=== PATIENT | female | born 1945 | race Caucasian/White ===

== ENCOUNTER 2016-03-18 08:29 | Outpatient (CLI) | payer MEDICARE, MEDICAID | END 2016-03-18 08:30 | disposition home or self-care (01) | DX: E11.22 Type 2 diabetes mellitus with diabetic chronic kidney disease (principal); N18.4 Chronic kidney disease, stage 4 (severe) ==

== ENCOUNTER 2017-03-04 11:40 | Outpatient (CLI) | payer MEDICARE, MEDICAID ==
--- NOTE | 2017-03-04 15:35 | XRAY Report ---
DATE OF SERVICE: 03/04/2017 TWO VIEW CHEST: 03/04/2017 CLINICAL INDICATION: Shortness of breath. COMPARISON: 10/06/2007. FINDINGS: Frontal and lateral views of the chest demonstrate a normal cardiac silhouette. Lungs are clear. No effusion or pneumothorax is present. IMPRESSION: NO EVIDENCE OF ACUTE CARDIOPULMONARY DISEASE. THE PREVIOUSLY NOTED INTERSTITIAL OPACITIES HAVE RESOLVED. TD: 03/04/2017 16:34
== END 2017-03-04 11:41 | disposition home or self-care (01) ==
LOC: DI 11:40
PROVIDERS: ATTEND Nurse Practitioner Gerontology
DX: R06.02 Shortness of breath (principal); I50.9 Heart failure, unspecified
CPT/HCPCS: 36415; 71046; 83880

== ENCOUNTER 2017-07-19 08:00 | Outpatient (CLI) | payer MEDICARE, MEDICAID ==
[2017-07-19 13:34] LABS: BASOPHILS # (AUTO) 0.1 10^3/uL (0.0-0.1); BASOPHILS % (AUTO) 1.4 %; EOSINOPHILS # (AUTO) 0.6 10^3/uL (0.0-0.7); EOSINOPHILS % (AUTO) 5.4 %; HGB - HEMOGLOBIN 13.9 g/dL (12.0-16.0); LYMPHOCYTES # (AUTO) 3.6 10^3/uL (1.5-3.5); LYMPHOCYTES % (AUTO) 33.6 %; MEAN CORPUSCULAR HGB CONC 33.3 g/dL (32.0-36.0); MEAN PLATELET VOLUME 8.5 fL (7.9-10.8); MONOCYTES # (AUTO) 1.1 10^3/uL (0.0-1.0); MONOCYTES % (AUTO) 10.1 %; NEUTROPHILS # (AUTO) 5.3 10^3/uL (1.5-6.6); NEUTROPHILS % (AUTO) 49.5 %; PLT - PLATELET COUNT 250 10^3/uL (130-450); WHITE BLOOD COUNT 10.6 x10^3/uL (4.8-10.8)
[2017-07-19 14:01] LABS: ALBUMIN 3.7 g/dL (3.2-5.5); ALBUMIN/GLOBULIN RATIO 0.9 (1.0-2.2); ALKALINE PHOSPHATASE 66 IU/L (42-121); ALT ALANINE AMINOTRANSFERASE 29 IU/L (10-60); AST ASPARTATE AMINOTRANSFERASE 26 IU/L (10-42); BILIRUBIN,TOTAL 0.7 mg/dL (0.2-1.0); BUN - BLOOD UREA NITROGEN 27 mg/dL (6-20); CALCIUM 9.5 mg/dL (8.5-10.3); CARBON DIOXIDE - CO2 29 mmol/L (21-32); CHLORIDE 103 mmol/L (101-111); CHOL/HDL RATIO 2.7 (<4.4); CHOLESTEROL 105 mg/dL; CREATININE 1.2 mg/dL (0.4-1.0); GFR - MDRD 44 (>89); GLUCOSE 93 mg/dL (70-100); HDL CHOLESTEROL 39 mg/dL; LDL CHOLESTEROL,CALCULATED 49 mg/dL; LDL/HDL RATIO 1.3 (<4.4); SODIUM 140 mmol/L (135-145); VLDL CHOLESTEROL 17 mg/dL
[2017-07-19 15:09] LABS: HB2 TOTAL 15.6 g/dL; HEMOGLOBIN A1C 1.33 g/dL
== END 2017-07-19 08:01 | disposition home or self-care (01) ==
LOC: LAB.N 08:00
PROVIDERS: ATTEND Nurse Practitioner Gerontology
DX: I13.0 Hypertensive heart and chronic kidney disease with heart failure and stage 1 through stage 4 chronic kidney disease, or unspecified chronic kidney disease (principal); I50.9 Heart failure, unspecified; E11.22 Type 2 diabetes mellitus with diabetic chronic kidney disease; N18.4 Chronic kidney disease, stage 4 (severe)
CPT/HCPCS: 36415; 80053; 80061; 83036; 83721; 85025

== ENCOUNTER 2017-12-07 08:47 | Outpatient (CLI) | payer MEDICARE, MEDICAID ==
[2017-12-07 13:47] LABS: HB2 TOTAL 14.6 g/dL; HEMOGLOBIN A1C 0.97 g/dL; HEMOGLOBIN A1C % 8.2 % (4.6-6.2)
[2017-12-07 15:13] LABS: ALBUMIN 3.5 g/dL (3.2-5.5); ALBUMIN/GLOBULIN RATIO 0.9 (1.0-2.2); ALKALINE PHOSPHATASE 78 IU/L (42-121); ALT ALANINE AMINOTRANSFERASE 27 IU/L (10-60); AST ASPARTATE AMINOTRANSFERASE 27 IU/L (10-42); BILIRUBIN,TOTAL 0.7 mg/dL (0.2-1.0); BUN - BLOOD UREA NITROGEN 25 mg/dL (6-20); CALCIUM 9.1 mg/dL (8.5-10.3); CARBON DIOXIDE - CO2 27 mmol/L (21-32); CHLORIDE 102 mmol/L (101-111); CHOL/HDL RATIO 2.9 (<4.4); CHOLESTEROL 112 mg/dL; CREATININE 1.3 mg/dL (0.4-1.0); GFR - MDRD 40 (>89); GLUCOSE 61 mg/dL (70-100); HDL CHOLESTEROL 38 mg/dL; LDL CHOLESTEROL,CALCULATED 56 mg/dL; LDL/HDL RATIO 1.5 (<4.4); SODIUM 137 mmol/L (135-145); TOTAL PROTEIN 7.4 g/dL (6.7-8.2); VLDL CHOLESTEROL 18 mg/dL
== END 2017-12-07 08:48 | disposition home or self-care (01) ==
LOC: LAB.N 08:47
PROVIDERS: ATTEND Nurse Practitioner
DX: E11.9 Type 2 diabetes mellitus without complications (principal)
CPT/HCPCS: 36415; 80053; 80061; 82043; 83036; 83721; 84443

== ENCOUNTER 2018-02-24 09:21 | Outpatient (CLI) | payer MEDICARE, MEDICAID | END 2018-02-24 23:59 | disposition home or self-care (01) | LOC: RT.N 09:21 | DX: Z53.9 Procedure and treatment not carried out, unspecified reason (principal) ==

== ENCOUNTER 2018-03-08 08:00 | Outpatient (CLI) | payer MEDICARE, MEDICAID ==
[2018-03-08 13:15] LABS: CREATININE 0.9 mg/dL (0.4-1.0)
[2018-03-08 13:31] LABS: CALCIUM 8.7 mg/dL (8.5-10.3)
[2018-03-08 13:33] LABS: HB2 TOTAL 15.6 g/dL; HEMOGLOBIN A1C 1.23 g/dL; HEMOGLOBIN A1C % 9.4 % (4.6-6.2)
== END 2018-03-08 23:59 | disposition home or self-care (01) ==
LOC: LAB.N 08:00
PROVIDERS: ATTEND Nurse Practitioner Gerontology
DX: I12.9 Hypertensive chronic kidney disease with stage 1 through stage 4 chronic kidney disease, or unspecified chronic kidney disease (principal); E11.9 Type 2 diabetes mellitus without complications
CPT/HCPCS: 36415; 80048; 83036

== ENCOUNTER 2018-05-05 08:00 | Outpatient (CLI) | payer MEDICARE, MEDICAID ==
[2018-05-05 13:29] LABS: BUN - BLOOD UREA NITROGEN 53 mg/dL (6-20); CHOLESTEROL 124 mg/dL; GFR - MDRD 24 (>89); HDL CHOLESTEROL 42 mg/dL; LDL CHOLESTEROL,CALCULATED 68 mg/dL; LDL/HDL RATIO 1.6 (<4.4); VLDL CHOLESTEROL 14 mg/dL
[2018-05-05 14:12] LABS: CALCIUM 9.4 mg/dL (8.5-10.3); CARBON DIOXIDE - CO2 23 mmol/L (21-32); CHLORIDE 106 mmol/L (101-111); SODIUM 141 mmol/L (135-145)
[2018-05-05 14:13] LABS: GLUCOSE 59 mg/dL (70-100)
== END 2018-05-05 23:59 | disposition home or self-care (01) ==
LOC: LAB.N 08:00
DX: E78.5 Hyperlipidemia, unspecified (principal); I25.10 Atherosclerotic heart disease of native coronary artery without angina pectoris
CPT/HCPCS: 36415; 80048; 80061; 83721; 85610

== ENCOUNTER 2018-05-08 07:28 | Outpatient (CLI) | payer MEDICARE, MEDICAID | END 2018-05-08 23:59 | LOC: LAB.N 07:28 | PROVIDERS: ATTEND Nurse Practitioner | DX: I25.10 Atherosclerotic heart disease of native coronary artery without angina pectoris (principal) | CPT/HCPCS: 85610 ==

== ENCOUNTER 2018-05-15 08:00 | Outpatient (CLI) | payer MEDICARE, MEDICAID ==
[2018-05-15 12:50] LABS: ALBUMIN 3.6 g/dL (3.2-5.5); BILIRUBIN,TOTAL 0.6 mg/dL (0.2-1.0); CALCIUM 9.1 mg/dL (8.5-10.3); CREATININE 1.3 mg/dL (0.4-1.0); TOTAL PROTEIN 7.3 g/dL (6.7-8.2)
== END 2018-05-15 23:59 | disposition home or self-care (01) ==
LOC: LAB.N 08:00
PROVIDERS: ATTEND Nurse Practitioner Gerontology
DX: R79.89 Other specified abnormal findings of blood chemistry (principal); I10 Essential (primary) hypertension; Z79.01 Long term (current) use of anticoagulants
CPT/HCPCS: 36415; 80053; 85610

== ENCOUNTER 2018-05-19 08:00 | Outpatient (CLI) | payer MEDICARE, MEDICAID | END 2018-05-19 23:59 | disposition home or self-care (01) | LOC: LAB.N 08:00 | PROVIDERS: ATTEND Nurse Practitioner | DX: I25.10 Atherosclerotic heart disease of native coronary artery without angina pectoris (principal) | CPT/HCPCS: 85610 ==

== ENCOUNTER 2018-05-22 08:00 | Outpatient (CLI) | payer MEDICARE, MEDICAID | END 2018-05-22 08:01 | disposition home or self-care (01) | LOC: LAB.N 08:00 | PROVIDERS: ATTEND Nurse Practitioner | DX: I25.10 Atherosclerotic heart disease of native coronary artery without angina pectoris (principal) | CPT/HCPCS: 85610 ==

== ENCOUNTER 2018-05-29 08:00 | Outpatient (CLI) | payer MEDICARE, MEDICAID | END 2018-05-29 23:59 | disposition home or self-care (01) | LOC: LAB.N 08:00 | PROVIDERS: ATTEND Nurse Practitioner Gerontology | DX: Z79.01 Long term (current) use of anticoagulants (principal) | CPT/HCPCS: 85610 ==

== ENCOUNTER 2018-05-30 08:22 | Inpatient (IN) | payer MEDICARE, MEDICAID ==
--- NOTE | 2018-05-30 08:46 | ED Physician Documentation ---
PD HPI DYSPNEA - Stated complaint Stated Complaint: SOA - Chief complaint Chief Complaint: Cardiac - History obtained from History obtained from: Patient - History of Present Illness Timing - onset: How many days ago (4-5 days of dyspnea and lightheadedness, with history of CAD and stents placed a month ago.) Timing - onset during: Light activity Timing - duration: Days Timing - details: Gradual onset, Still present, Waxing and waning (Worse with activity. She did not really have any unusual cough. She has a feeling of mild wheezing. She notes the dyspnea mostly with walking around her activity. She did have some leg edema a few days ago and that decreased with use of some Lasix for the past 2-3 days.) Inciting event(s): No: Out of meds, URI Improved by: Lasix, Rest Worsened by: Exertion Associated symptoms: Wheezing (mild), Bilateral edema (mild both legs, improved from few days ago after Lasix.). No: Fever, Cough Similar symptoms before: Has not had sx before Recently seen: Clinic (She was having dyspnea as her main presentation and found to have coronary disease without chest pain. She does have history of asthma so was confused with asthma for a while. She had a cardiology evaluation including heart cath which found multiple vessel occlusion stenoses. She had 2 stents placed in [facility] a month ago and had been doing well subsequently. She is scheduled for 1 or 2 more stents to be placed on the .) Review of Systems Constitutional: denies: Fever Nose: denies: Rhinorrhea / runny nose, Congestion Throat: denies: Sore throat Respiratory: reports: Dyspnea, Wheezing (mild intermittent, common). denies: Cough (mild chronic) GI: denies: Abdominal Pain, Nausea, Vomiting, Diarrhea Skin: denies: Rash, Lesions Musculoskeletal: reports: Extremity swelling Immunocompromised: denies: Immunocompromised PD PAST MEDICAL HISTORY - Past Medical History Cardiovascular: Coronary artery disease, Atrial fibrillation Respiratory: Asthma Neuro: None Endocrine/Autoimmune: None - Present Medications Home Medications: Ambulatory Orders Medication Instructions Recorded Confirmed Amiodarone [Pacerone] 200 mg PO DAILY 05/30/18 05/30/18 Amlodipine Besylate 1 tab PO DAILY 05/30/18 05/30/18 Aspirin 81 mg PO DAILY 05/30/18 05/30/18 Atorvastatin Calcium 40 mg PO DAILY 05/30/18 05/30/18 Clopidogrel [Plavix] 75 mg PO ONCE 05/30/18 05/30/18 Insulin Aspart [NovoLOG] 5 unit SUBQ TIDWM 05/30/18 05/30/18 Insulin Degludec [Tresiba] 60 unit SQ DAILY 05/30/18 05/30/18 Losartan [Cozaar] 50 mg PO DAILY 05/30/18 05/30/18 Meclizine [Antivert] 25 mg PO Q6H 05/30/18 05/30/18 Metoprolol Tartrate 50 mg PO DAILY 05/30/18 05/30/18 Warfarin [Coumadin] 2 mg PO 1400 05/30/18 05/30/18 - Allergies Allergies/Adverse Reactions: Allergies Allergy/AdvReac Type Severity Reaction Status Date / Time Penicillins Allergy Rash Verified 05/30/18 08:29 PD ED PE NORMAL - Vitals Vital signs reviewed: Yes - General General: Alert and oriented X 3, No acute distress, Well developed/nourished - HEENT HEENT: Moist mucous membranes, Pharynx benign - Neck Neck: Supple, no meningeal sign, No adenopathy - Cardiac Cardiac: RRR, No murmur - Respiratory Respiratory: No: Clear bilaterally (Mild bibasilar fine crackles. No notable wheezes.) - Abdomen Abdomen: Soft, Non tender - Derm Derm: Normal color, Warm and dry - Extremities Extremities: No tenderness to palpate, Normal ROM s pain, No calf tenderness / cord, Other (1+ edema both legs without redness nor calf tenderness. ) - Neuro Neuro: Alert and oriented X 3, No motor deficit, Normal speech Eye Opening: Spontaneous Motor: Obeys Commands Verbal: Oriented GCS Score: 15 Results - Vitals Vitals: Vital Signs - 24 hr 05/30/18 05/30/18 05/30/18 08:24 08:48 09:38 Temperature 35.7 C L Heart Rate 83 42 L 38 L Respiratory 12 14 Rate Blood Pressure 121/79 O2 Saturation 94 97 05/30/18 05/30/18 05/30/18 09:50 10:24 11:15 Temperature Heart Rate 41 L 42 L 42 L Respiratory 16 20 20 Rate Blood Pressure 117/63 108/54 L 111/53 L O2 Saturation 99 96 97 Oxygen O2 Source Nasal cannula - EKG (time done) 08:31 Rate: Rate (enter#) Rhythm: Sinus bradycardia [place]: Normal Intervals: Normal [place] QRS: Normal Ischemia: Normal ST segments. No: ST elevation c/w ischemia, ST depression - Labs Labs: Laboratory Tests 05/30/18 05/30/18 05/30/18 09:05 09:25 09:25 WBC 9.0 RBC 4.20 Hgb 12.4 Hct 37.6 MCV 89.4 MCH 29.5 MCHC 33.0 RDW 15.6 H Plt Count 109 L MPV 8.8 Neut # (Auto) 6.0 Lymph # (Auto) 1.6 [place] # (Auto) 0.9 Eos # (Auto) 0.4 Baso # (Auto) 0.1 Absolute Nucleated RBC 0.00 Nucleated RBC % 0.0 Manual Slide Review Indicated WBC Morphology NORMAL APPEARANCE Platelet Estimate DECREASED (<130,000) Platelet Morphology 1+ LARGE PLATELETS RBC Morph Micro Appear 1+ ANISOCYTOSIS PT INR Sodium 135 Potassium 4.4 Chloride 103 Carbon Dioxide 22 Anion Gap 10.0 BUN 39 H Creatinine 1.8 H Estimated GFR (MDRD) 28 L Glucose 146 H Calcium 8.5 Magnesium 2.2 Total Bilirubin 0.7 AST 122 H ALT 135 H Alkaline Phosphatase 78 Troponin I < 0.04 B-Natriuretic Peptide Total Protein 7.1 Albumin 3.4 Globulin 3.7 Albumin/Globulin Ratio 0.9 L Lipase 55 H 05/30/18 05/30/18 09:25 09:25 WBC RBC Hgb Hct MCV MCH MCHC RDW Plt Count MPV Neut # (Auto) Lymph # (Auto) [place] # (Auto) Eos # (Auto) Baso # (Auto) Absolute Nucleated RBC Nucleated RBC % Manual Slide Review WBC Morphology Platelet Estimate Platelet Morphology RBC Morph Micro Appear PT 15.3 H INR 1.4 H Sodium Potassium Chloride Carbon Dioxide Anion Gap BUN Creatinine Estimated GFR (MDRD) Glucose Calcium Magnesium Total Bilirubin AST ALT Alkaline Phosphatase Troponin I B-Natriuretic Peptide 565 H Total Protein Albumin Globulin Albumin/Globulin Ratio Lipase - Rads (name of study) chest xray Radiology: Prelim report reviewed (vascular prominence, basilar infiltrates, small effusions.), EMP read contemporaneously (c/w some degree of failure), See rad report PD MEDICAL DECISION MAKING - ED course Complexity details: reviewed results (Does have appearance of some congestive failure. It might be rate related and it does seem like she may been taking twice her beta-alex prescribed dose. I think she needs a little bit more diuresing. She had slight improvement with an albuterol inhaler. No signs of heart muscle injury.), considered differential (The patient is relatively bradycardic with a heart rate of 40. In discussion with her it sounds like she is taking metoprolol 50 mg twice a day. Dr. Farrar the cone trucker said her discharge instructions were 25 twice a day and our nursing notes a 50 mg once a day. She may have had too much beta-alex and is relatively bradycardic and that may be contributing to her congestive failure.), d/w patient, d/w family, d/w technical sales consultant (Talked with Dr. Farrar who is on-call for cardiology at [facility]. Given the patient is in a regular rhythm, he said we could decrease the amiodarone from 200-100 mg daily. He states her ejection fraction post stent previously was 70% and so does not feel that is likely heart failure related to the coronary disease. He would like the patient to be bradycardic with a target more 50-60. Give some diuretics over the next few days. He did not feel the patient needed transfer or change in the time schedule for her stent placement.) Departure - Departure Disposition: ED Place in Observation Clinical Impression: Bradycardia Dyspnea Qualifiers: Dyspnea type: dyspnea on exertion Qualified Code(s): R06.09 - Other forms of dyspnea Congestive heart failure Qualifiers: Heart failure type: unspecified Heart failure chronicity: acute Qualified Code(s): I50.9 - Heart failure, unspecified Asthma Qualifiers: Asthma severity: mild Asthma persistence: intermittent Asthma complication type: unspecified Qualified Code(s): J45.20 - Mild intermittent asthma, uncomplicated Discharge Date/Time: 05/30/18 12:48
[2018-05-30 09:26] LABS: BASOPHILS # (AUTO) 0.1 10^3/uL (0.0-0.1); BASOPHILS % (AUTO) 1.2 %; EOSINOPHILS # (AUTO) 0.4 10^3/uL (0.0-0.7); EOSINOPHILS % (AUTO) 4.1 %; HGB - HEMOGLOBIN 12.4 g/dL (12.0-16.0); LYMPHOCYTES # (AUTO) 1.6 10^3/uL (1.5-3.5); LYMPHOCYTES % (AUTO) 18.1 %; MEAN CORPUSCULAR HEMOGLOBIN 29.5 pg (27.0-31.0); MEAN CORPUSCULAR VOLUME 89.4 fL (81.0-99.0); MEAN PLATELET VOLUME 8.8 fL (7.9-10.8); MONOCYTES # (AUTO) 0.9 10^3/uL (0.0-1.0); MONOCYTES % (AUTO) 9.7 %; NEUTROPHILS % (AUTO) 66.9 %; PLT - PLATELET COUNT 109 10^3/uL (130-450); RED CELL DISTRIBUTION WIDTH 15.6 % (12.0-15.0)
[2018-05-30] MEDS ORDERED: ALBUTEROL NEB 2.5 MG/3 ML INH STA (09:28)
[2018-05-30 09:44] LABS: ALBUMIN 3.4 g/dL (3.2-5.5); ALBUMIN/GLOBULIN RATIO 0.9 (1.0-2.2); BILIRUBIN,TOTAL 0.7 mg/dL (0.2-1.0); CALCIUM 8.5 mg/dL (8.5-10.3); CREATININE 1.8 mg/dL (0.4-1.0); MAGNESIUM 2.2 mg/dL (1.7-2.8); TOTAL PROTEIN 7.1 g/dL (6.7-8.2)
--- NOTE | 2018-05-30 09:44 | XRAY Report ---
Reason: chest pain/SOA Procedure Date: 05/30/2018 Accession Number: [id number] / [id number] Procedure: XR - Chest 1 View X-Ray CPT Code: 30223 FULL RESULT: EXAM: CHEST RADIOGRAPHY EXAM DATE: 05/30/2018 09:33 AM. CLINICAL HISTORY: Chest pain/SOA. COMPARISON: CHEST AP (VG) 04/02/2018 10:23 AM. TECHNIQUE: 1 view. FINDINGS: Lungs/Pleura: Very mild increased vascular and interstitial prominence. New mild left basilar/retrocardiac atelectasis or infiltrate. Very mild left costophrenic angle blunting is without change could represent a very small effusion. No pneumothorax. Mediastinum: Stable cardiac enlargement. A line over the right upper abdomen and vertically projecting over the right aspect of the heart, tip near the cavoatrial junction region, presumably overlies the patient. Other: None. IMPRESSION: 1. New very mild left basilar atelectasis or infiltrate. 2. New very mild vascular and interstitial prominence. 3. Stable very small left pleural effusion versus pleural thickening. 4. Stable cardiac enlargement. RADIA
[2018-05-30 09:47] LABS: INR 1.4 (0.8-1.2); PT - PROTHROMBIN TIME 15.3 secs (9.9-12.6)
[2018-05-30 09:53] LABS: PLATELET MORPHOLOGY 1+ LARGE PLATELETS (NORMAL)
[2018-05-30 09:54] LABS: PLATELET ESTIMATE, MANUAL DECREASED (<130,000) (NORMAL); RBC MORPHOLOGY (MULTIPLE) 1+ ANISOCYTOSIS (NORMAL)
[2018-05-30] MEDS ORDERED: FUROSEMIDE 20 MG/2 ML VIAL IVP STA (10:02)
[2018-05-30] MEDS ORDERED: TEMAZEPAM 15 MG CAPSULE PO PRN (11:50)
[2018-05-30] MEDS ORDERED: PROCHLORPERAZINE 10 MG/2 ML VIAL IVP PRN (11:50)
[2018-05-30] MEDS ORDERED: ACETAMINOPHEN 325 MG TABLET PO PRN (11:50)
[2018-05-30] MEDS ORDERED: CLOPIDOGREL 75 MG TABLET PO SCH (12:00)
[2018-05-30] MEDS: MECLIZINE 12.5 MG TABLET PO SCH ×2 (13:41→17:20)
[2018-05-30] MEDS: WARFARIN 1 MG TABLET PO SCH (13:41)
[2018-05-30] MEDS: INSULIN ASPART 300 UNIT/3 ML PEN SUBQ SCH ×3 (13:43→20:51)
[2018-05-30] MEDS: FUROSEMIDE 40 MG/4 ML VIAL IVP SCH (17:20)
[2018-05-30] MEDS: SODIUM CHLORIDE FLUSH 0.9% 10 ML SYRINGE IVP SCH (17:20)
--- NOTE | 2018-05-30 17:36 | HISTORY & PHYSICAL EXAMINATION ---
Chief Complaint - Chief Complaint Chief Complaint: increased SOB, lightheadedness Chest Pain Admission HPI - Admitted From Admitted from: ED - History Obtained From Records Reviewed: RN notes reviewed, Old records reviewed History obtained from: Patient, Family Exam limitations: Language barrier, Other (continued shortness of breath, exacerbated by speaking) - History of Present Illness Severity at the worst: reports: Severe Context-Pain started w/: reports: Exertion, Inspiration, Position Timing: reports: Gradual onset, Constant Duration: reports: Days: (4-5 days) Improved with: reports: Rest, Oxygen, Other (diuretics) Worsened by: reports: Exertion, Movement Associated symptoms: reports: Shortness of air, Nausea, Feeling faint / dizzy, General Weakness HPI Comment/Other: Liudmila Gusman is an obese, Greek 72-year old woman with a past medical history of uncontrolled diabetes, non-ST elevated myocardial infarction, status post coronary stenting in March 2018, CKD stage 3, hypertension, atrial fibrillation with RVR on Warfarin, CAD, hyperlipidemia, intracranial vascular stenosis, vertigo, obesity, peripheral neuropathy, chronic dysuria, cataracts, seasonal allergies, and asthma. The patient presented to the ED via private car with complaints of a 4-5 day history of progressive shortness of breath, dizziness and increased peripheral swelling. She called her PCP on Tuesday (yesterday) who gave her a refill of the Meclizine for her complaints of dizziness. Upon my exam the patient admitted to a gradual onset of progressive shortness of breath that becomes worse with activity or lying flat in bed, increased leg edema, poor appetite, and ongoing dizziness. She denied acute chest pain, chest pressure, headaches, productive cough, fever, chills, recent illness, or a new rash. She also admitted to her breathing being much improved since wearing the oxygen that was placed in the ED. Physical exam revealed very diminished lung sounds with prominent expiratory wheezing, labored breathing with speaking, a distant S3 gallop, + murmur, increased abdominal edema, and increased peripheral edema. Labs showed anemia with an H/H of 12.4/37.6, platelets of 109, BUN of 39, creatinine of 1.8, GFR of 28, glucose of 146, AST 122, ALT 135, troponin of 0.04, lipase of 55, INR of 1.4, & BNP of 565. Vital signs showed a very low heart rate in the 40's, temp 35.7 C, RR 14, B/P 111/53, and O2 of 97% on 2L nasal cannula. Records indicate that the patient was discharged from [facility] on 04/06/2018 after undergoing a complex PCI with primary teaching assistant of an intra-aortic balloon pump. She was sub-therapeutic on her INR at the time of discharge with a value of 1.5 and her last INR completed by her PCP was also low at 1.3. Once arriving on the nursing floor, she is found to have very light blood sugars, so her home scheduled insulin are on hold. Since her platelet count is low, a Lovenox bridge may be contraindicated. She will be admitted to observation for aggressive diuresis, diabetes sugar control, symptom management of her dyspnea and dizziness, and to monitor effectiveness of resolution of apparent liver congestion caused by this acute CHF. PMH/PSH - Past Medical History Cardiovascular: positive: Congestive heart failure, Hypertension, Coronary artery disease, Atrial fibrillation, Murmur Respiratory: positive: Asthma Neuro: positive: Peripheral neuropathy Endocrine/Autoimmune: positive: Type 2 diabetes GI: positive: GERD : positive: Incontinence, Renal insuffiency, Nocturia, Frequency HEENT: positive: Chronic vision loss, Chronic sinusitis Psych: positive: Anxiety Musculoskeletal: positive: Osteoarthritis Derm: positive: None MRSA Hx?: No Other Past Medical History: vertigo - Past Surgical History Cardiovascular: positive: Cardiac catheterization, Angioplasty Social & Family Hx - Living Situation Living Arrangement: At home Living Situation: With family (Lives in [place], [place] with daughter, son in law and grandson) - Social History Does the pt smoke?: No Smoking Status: Never smoker Does the pt drink ETOH?: No Does the pt have substance abuse?: No - POLST Patient has POLST: No POLST Status: Full Code - Family History Family History: Mother: , CAD, Diabetes, Type 2, Hypertension, Father: Family History Comment/Other: Patient did not know her father and brothers/sister are estranged. Meds/Allgy - Home Medications Home Medications: Ambulatory Orders Medication Instructions Recorded Confirmed Amiodarone [Pacerone] 200 mg PO DAILY 05/30/18 Amlodipine Besylate 1 tab PO DAILY 05/30/18 Aspirin 81 mg PO DAILY 05/30/18 Atorvastatin Calcium 40 mg PO QPM 05/30/18 Benzonatate 200 mg PO TID PRN 05/30/18 Clopidogrel [Plavix] 75 mg PO DAILY 05/30/18 Fluticasone/Salmeterol [Advair 1 inh INH BID 05/30/18 100-50 Diskus] Insulin Aspart [NovoLOG] 16 unit SUBQ TIDWM 05/30/18 Insulin Degludec [Tresiba] 60 unit SQ DAILY 05/30/18 Losartan [Cozaar] 25 mg PO DAILY 05/30/18 Meclizine [Antivert] 25 mg PO BID PRN 05/30/18 Metoprolol Succinate [Toprol Xl] 25 mg PO BID 05/30/18 Nitroglycerin [Nitrostat] 0.4 mg SL Q5MIN PRN 05/30/18 Scopolamine [Transderm-Scop] 1 patch TOP Q72H 05/30/18 Warfarin [Coumadin] 1 - 4 mg PO DAILY 05/30/18 - Allergies Allergies/Adverse Reactions: Allergies Allergy/AdvReac Type Severity Reaction Status Date / Time lisinopril Allergy Respiratory Verified 05/30/18 18:23 Penicillins Allergy Rash Verified 05/30/18 08:29 pioglitazone [From Actos] Allergy Itching Verified 05/30/18 18:23 rosiglitazone [From Avandia] Allergy Edema Verified 05/30/18 18:22 Review of Systems - Constitutional Constitutional: reports: Fatigue, Weakness, Poor appetite - Eyes Eyes: reports: Vision loss - Ears, Nose & Throat Ears, Nose & Throat: reports: Hearing loss, Nasal congestion, Postnasal drainage - Cardiovascular Cariovascular: reports: Irregular heart rate, Edema, Lightheadedness, Orthopnea - Respiratory Respiratory: reports: Cough, Wheezing, Orthopnea, SOB at rest, SOB with exertion - Gastrointestinal Gastrointestinal: reports: Abdominal distention, Nausea, Reflux/heartburn - Genitourinary Genitourinary: reports: Dysuria, Frequency, Urgency, Incontinence, Nocturia - Musculoskeletal Musculoskeletal: reports: Limited range of motion, Muscle weakness - Integumentary Integumentary: reports: Dryness - Neurological Neurological: reports: General weakness, Memory problems, Pre-existing deficit - Psychiatric Psychiatric: reports: Anxiety - Hematologic/Lymphatic Hematologic/Lymphatic: reports: Anemia - All Other Systems All Other Systems: reports: Reviewed and negative Prior Level of Functionality: Lives with daughter, son in law and grand son. 4 steps to enter the home, 14 steps to the patient's bedroom, bathroom on the 2nd floor. At baseline the patient was ambulatory without the use of AD, recently was driving, and active in the community. No recent falls reported. Has had Home health services recommended for strength training and gait stability due to her ongoing vertigo, dizziness and recent NSTEMI. Exam - Vital Signs Reviewed Vital Signs: Yes Vital Signs: Vital Signs x48h Temp Pulse Pulse Resp BP BP Pulse Ox 05/30/18 16:20 37.2 C 47 L 24 133/51 H 95 05/30/18 13:05 37.0 C 45 L 17 127/47 L 05/30/18 11:15 42 L 20 111/53 L 97 05/30/18 10:24 42 L 20 108/54 L 96 05/30/18 09:50 41 L 16 117/63 99 05/30/18 09:38 38 L 14 - Physical Exam General Appearance: positive: Alert, Moderate distress Eyes Bilateral: positive: Normal inspection, PERRL ENT: positive: ENT inspection nml, Pharynx nml, Dry mucous membranes Neck: positive: Thyroid nml, No JVD, Stiff neck Respiratory: positive: Chest non-tender, Wheezes, Other (diminished) Cardiovascular: positive: No gallop, Bradycardia, Systolic murmur, Decreased pulse(s) Peripheral Pulses: positive: 1+ Abdomen: positive: Non-tender, Nml bowel sounds, Hepatomegaly, Other (rounded, obese, soft) Back: positive: Nml inspection Skin: positive: Color nml, No rash, Warm, Dry Extremities: positive: Non-tender, Full ROM, Pedal edema Neurologic/Psychiatric: positive: CN's nml (2-12), Motor nml, Weakness, Sensory loss, Depressed mood/affect Reflexes: Bicep (R): 2+, Bicep (L): 2+ Results - Lab Results Lab results reviewed: Yes Fish Bones: 05/30/18 09:05 05/30/18 09:25 Other Lab Results: Lab Results x24hrs 05/30/18 05/30/18 05/30/18 Range/Units 16:46 16:10 09:25 WBC (4.8-10.8) x10^3/uL RBC (4.20-5.40) 10^6/uL Hgb (12.0-16.0) g/dL Hct (37.0-47.0) % MCV (81.0-99.0) fL MCH (27.0-31.0) pg MCHC (32.0-36.0) g/dL RDW (12.0-15.0) % Plt Count (130-450) 10^3/uL MPV (7.9-10.8) fL Neut # (Auto) (1.5-6.6) 10^3/uL Lymph # (Auto) (1.5-3.5) 10^3/uL Harlan # (Auto) (0.0-1.0) 10^3/uL Eos # (Auto) (0.0-0.7) 10^3/uL Baso # (Auto) (0.0-0.1) 10^3/uL Absolute Nucleated RBC x10^3/uL Nucleated RBC % /100WBC Manual Slide Review WBC Morphology (NORMAL) Platelet Estimate (NORMAL) Platelet Morphology (NORMAL) RBC Morph Micro Appear (NORMAL) PT (9.9-12.6) secs INR (0.8-1.2) Sodium (135-145) mmol/L Potassium (3.5-5.0) mmol/L Chloride (101-111) mmol/L Carbon Dioxide (21-32) mmol/L Anion Gap (6-13) BUN (6-20) mg/dL Creatinine (0.4-1.0) mg/dL Estimated GFR (MDRD) (>89) Glucose (70-100) mg/dL POC Whole Bld Glucose 110 H (70 - 100) mg/dL Calcium (8.5-10.3) mg/dL Magnesium (1.7-2.8) mg/dL Total Bilirubin (0.2-1.0) mg/dL AST (10-42) IU/L ALT (10-60) IU/L Alkaline Phosphatase (42-121) IU/L Troponin I < 0.04 (<0.49) ng/mL B-Natriuretic Peptide 565 H (5-100) pg/mL Total Protein (6.7-8.2) g/dL Albumin (3.2-5.5) g/dL Globulin (2.1-4.2) g/dL Albumin/Globulin Ratio (1.0-2.2) Lipase (22-51) U/L 05/30/18 05/30/18 05/30/18 Range/Units 09:25 09:25 09:25 WBC (4.8-10.8) x10^3/uL RBC (4.20-5.40) 10^6/uL Hgb (12.0-16.0) g/dL Hct (37.0-47.0) % MCV (81.0-99.0) fL MCH (27.0-31.0) pg MCHC (32.0-36.0) g/dL RDW (12.0-15.0) % Plt Count (130-450) 10^3/uL MPV (7.9-10.8) fL Neut # (Auto) (1.5-6.6) 10^3/uL Lymph # (Auto) (1.5-3.5) 10^3/uL Harlan # (Auto) (0.0-1.0) 10^3/uL Eos # (Auto) (0.0-0.7) 10^3/uL Baso # (Auto) (0.0-0.1) 10^3/uL Absolute Nucleated RBC x10^3/uL Nucleated RBC % /100WBC Manual Slide Review WBC Morphology (NORMAL) Platelet Estimate (NORMAL) Platelet Morphology (NORMAL) RBC Morph Micro Appear (NORMAL) PT 15.3 H (9.9-12.6) secs INR 1.4 H (0.8-1.2) Sodium 135 (135-145) mmol/L Potassium 4.4 (3.5-5.0) mmol/L Chloride 103 (101-111) mmol/L Carbon Dioxide 22 (21-32) mmol/L Anion Gap 10.0 (6-13) BUN 39 H (6-20) mg/dL Creatinine 1.8 H (0.4-1.0) mg/dL Estimated GFR (MDRD) 28 L (>89) Glucose 146 H (70-100) mg/dL POC Whole Bld Glucose (70 - 100) mg/dL Calcium 8.5 (8.5-10.3) mg/dL Magnesium 2.2 (1.7-2.8) mg/dL Total Bilirubin 0.7 (0.2-1.0) mg/dL AST 122 H (10-42) IU/L ALT 135 H (10-60) IU/L Alkaline Phosphatase 78 (42-121) IU/L Troponin I < 0.04 (<0.49) ng/mL B-Natriuretic Peptide (5-100) pg/mL Total Protein 7.1 (6.7-8.2) g/dL Albumin 3.4 (3.2-5.5) g/dL Globulin 3.7 (2.1-4.2) g/dL Albumin/Globulin Ratio 0.9 L (1.0-2.2) Lipase 55 H (22-51) U/L /11/09 Range/Units 09:05 WBC 9.0 (4.8-10.8) x10^3/uL RBC 4.20 (4.20-5.40) 10^6/uL Hgb 12.4 (12.0-16.0) g/dL Hct 37.6 (37.0-47.0) % MCV 89.4 (81.0-99.0) fL MCH 29.5 (27.0-31.0) pg MCHC 33.0 (32.0-36.0) g/dL RDW 15.6 H (12.0-15.0) % Plt Count 109 L (130-450) 10^3/uL MPV 8.8 (7.9-10.8) fL Neut # (Auto) 6.0 (1.5-6.6) 10^3/uL Lymph # (Auto) 1.6 (1.5-3.5) 10^3/uL Harlan # (Auto) 0.9 (0.0-1.0) 10^3/uL Eos # (Auto) 0.4 (0.0-0.7) 10^3/uL Baso # (Auto) 0.1 (0.0-0.1) 10^3/uL Absolute Nucleated RBC 0.00 x10^3/uL Nucleated RBC % 0.0 /100WBC Manual Slide Review Indicated WBC Morphology NORMAL APPEARANCE (NORMAL) Platelet Estimate DECREASED (<130,000) (NORMAL) Platelet Morphology 1+ LARGE PLATELETS (NORMAL) RBC Morph Micro Appear 1+ ANISOCYTOSIS (NORMAL) PT (9.9-12.6) secs INR (0.8-1.2) Sodium (135-145) mmol/L Potassium (3.5-5.0) mmol/L Chloride (101-111) mmol/L Carbon Dioxide (21-32) mmol/L Anion Gap (6-13) BUN (6-20) mg/dL Creatinine (0.4-1.0) mg/dL Estimated GFR (MDRD) (>89) Glucose (70-100) mg/dL POC Whole Bld Glucose (70 - 100) mg/dL Calcium (8.5-10.3) mg/dL Magnesium (1.7-2.8) mg/dL Total Bilirubin (0.2-1.0) mg/dL AST (10-42) IU/L ALT (10-60) IU/L Alkaline Phosphatase (42-121) IU/L Troponin I (<0.49) ng/mL B-Natriuretic Peptide (5-100) pg/mL Total Protein (6.7-8.2) g/dL Albumin (3.2-5.5) g/dL Globulin (2.1-4.2) g/dL Albumin/Globulin Ratio (1.0-2.2) Lipase (22-51) U/L - Diagnostic Imaging Results Diagnostic Imaging Results: positive: Prelim report reviewed Sepsis Event Note (H) - Evaluation Current Stage of Sepsis: Ruled out CP/CHF Plan - Echo Plan to order an echo?: Yes - Plan Patient Problems: All Active Problems Acute diastolic CHF, NYHA class 2 and ACC/AHA stage C (Acute) Asthma (Acute) Bradycardia (Acute) Dyspnea (Acute) Orthopnea (Acute) Subtherapeutic anticoagulation (Acute) Atrial fibrillation with RVR (Chronic) CAD, multiple vessel (Chronic) CKD (chronic kidney disease) stage 3, GFR 30-59 ml/min (Chronic) Diabetes mellitus type 2 in obese (Chronic) Essential (primary) hypertension (Chronic) History of coronary artery stent placement (Chronic) Intracranial vascular stenosis (Chronic) Non-ST elevation myocardial infarction (NSTEMI) in recovery phase (Chronic) Obesity (BMI 30.0-34.9) (Chronic) Vertigo (Chronic) Diastolic CHF with preserved left ventricular function, NYHA class 2 (Acute) Congestive heart failure (Chronic) Plan: Acute diastolic CHF, NYHA class 2 and ACC/AHA stage C- Obtain Echo, continue IV lasix, support respiratory status, wean oxygen, daily weights, vital signs Asthma- Respiratory cares with supplemental oxygen, duo-nebs, and budesinide Bradycardia- Telemetry, await echo results Dyspnea- Continue respiratory cares, consider home oxygen testing prior to discharge Orthopnea- Avoid lying flat, continue to support respiratory status Subtherapeutic anticoagulation- Likely d/t acute CHF and lack of perfusion, routine labs, continue Warfarin indicated for a-fib Atrial fibrillation with RVR- Continue Amiodarone at a reduced dose of just 100mg daily, continue telemetry, Warfarin, routine labs CAD, multiple vessel- S/P coronary stents in March 2018, upcoming additional stents in May-pending CKD (chronic kidney disease) stage 3, GFR 30-59 ml/min- GFR was 28 upon admi ssion labs, monitor labs, avoid nephrotoxins, hypotension or worsening CHF Diabetes mellitus type 2 in obese- Hold usual home insulin, continue carb controlled diet, suspect dizziness may be from hypoglycemia Essential (primary) hypertension B/Ps soft at 111/53, continue to monitor, hold usual antihypertensives to leave room for aggressive diuresis History of coronary artery stent placement- S/P drug eluding stents on 04/04/2018, next planned for May of 2018 Intracranial vascular stenosis- as per imaging (MRI/MRA of head on 04/01/2018), may explain ongoing, chronic vertigo. Severe stenosis of the left DRYCLEANER, high grade stenosis of the right A1 segment and throughout the left DRYCLEANER Non-ST elevation myocardial infarction (NSTEMI) in recovery phase- stable, chronic Obesity (BMI 30.0-34.9) stable, chronic Vertigo- stable, chronic Diastolic CHF with preserved left ventricular function, NYHA class 2-stable, chronic Congestive heart failure- stable, chronic Core Measures - Anticipated LOS I expect patient to be DC'd or transferred within 96 hours.: Yes - DVT/VTE - Prophylaxis VTE/DVT Device ordered at admit?: Yes VTE/DVT Prophylaxis med ordered at admit?: Yes - Stroke - Rehab Assessment Rehab services assessment to be ordered?: Yes - AMI - Statin at Admit Aspirin Prescribed on Admit: Yes
[2018-05-30] MEDS ORDERED: IPRATROPIUM/ALBUTEROL 3 ML NEB INH PRN (17:48)
[2018-05-30] MEDS: IPRATROPIUM/ALBUTEROL 3 ML NEB INH SCH (19:14)
[2018-05-30] MEDS: BUDESONIDE 0.5 MG/2 ML NEB INH SCH (19:14)
[2018-05-30] MEDS: FAMOTIDINE 20 MG TABLET PO SCH (20:51)
[2018-05-30] MEDS: ATORVASTATIN 40 MG TABLET PO SCH (20:51)
[2018-05-30 21:50] LABS: HEMOGLOBIN A1C 0.63 g/dL; HEMOGLOBIN A1C % 6.6 % (4.6-6.2)
[2018-05-31] MEDS: MECLIZINE 12.5 MG TABLET PO PRN ×2 (00:43→05:54)
[2018-05-31] MEDS: SODIUM CHLORIDE FLUSH 0.9% 10 ML SYRINGE IVP SCH ×3 (05:45→17:22)
[2018-05-31] MEDS: SODIUM CHLORIDE FLUSH 0.9% 10 ML SYRINGE IVP PRN ×2 (05:47→17:22)
[2018-05-31] MEDS: FUROSEMIDE 40 MG/4 ML VIAL IVP SCH ×2 (05:47→14:08)
[2018-05-31 05:58] LABS: BASOPHILS # (AUTO) 0.1 10^3/uL (0.0-0.1); BASOPHILS % (AUTO) 0.9 %; EOSINOPHILS # (AUTO) 0.2 10^3/uL (0.0-0.7); EOSINOPHILS % (AUTO) 2.1 %; HGB - HEMOGLOBIN 11.5 g/dL (12.0-16.0); LYMPHOCYTES # (AUTO) 2.1 10^3/uL (1.5-3.5); LYMPHOCYTES % (AUTO) 23.2 %; MEAN CORPUSCULAR HEMOGLOBIN 29.7 pg (27.0-31.0); MEAN CORPUSCULAR HGB CONC 32.9 g/dL (32.0-36.0); MEAN CORPUSCULAR VOLUME 90.4 fL (81.0-99.0); MEAN PLATELET VOLUME 8.3 fL (7.9-10.8); MONOCYTES # (AUTO) 1.4 10^3/uL (0.0-1.0); MONOCYTES % (AUTO) 16.1 %; NEUTROPHILS # (AUTO) 5.1 10^3/uL (1.5-6.6); NEUTROPHILS % (AUTO) 57.7 %; PLT - PLATELET COUNT 188 10^3/uL (130-450); RED BLOOD COUNT 3.88 10^6/uL (4.20-5.40); RED CELL DISTRIBUTION WIDTH 15.4 % (12.0-15.0); WHITE BLOOD COUNT 8.9 x10^3/uL (4.8-10.8)
[2018-05-31 06:00] LABS: INR 1.6 (0.8-1.2)
[2018-05-31 06:02] LABS: HB2 TOTAL 12.4 g/dL; HEMOGLOBIN A1C 0.62 g/dL; HEMOGLOBIN A1C % 6.7 % (4.6-6.2)
--- NOTE | 2018-05-31 06:14 | XRAY Report ---
Reason: F/U CHF vs infiltrate Procedure Date: 05/31/2018 Accession Number: [id number] / [id number] Procedure: XR - Chest 1 View X-Ray CPT Code: 45476 FULL RESULT: EXAM: CHEST RADIOGRAPHY EXAM DATE: 05/31/2018 06:05 AM. CLINICAL HISTORY: F/U CHF vs infiltrate. COMPARISON: CHEST 1 VIEW 05/30/2018 9:21 AM. TECHNIQUE: 1 view. FINDINGS: Lungs/Pleura: Pulmonary vascular congestion. Mild left basilar atelectasis or infiltrate. Small left pleural effusion. No pneumothorax. Mediastinum: Within exam limitations, heart is mildly enlarged. Aortic atherosclerosis. Other: Osteopenia. Scoliosis and degenerative changes in the spine. IMPRESSION: 1. Cardiomegaly and pulmonary vascular congestion. 2. Mild left basilar atelectasis or infiltrate and small left pleural effusion. RADIA
[2018-05-31] MEDS: IPRATROPIUM/ALBUTEROL 3 ML NEB INH SCH ×3 (07:20→20:35)
[2018-05-31] MEDS: BUDESONIDE 0.5 MG/2 ML NEB INH SCH ×2 (07:20→20:35)
[2018-05-31] MEDS: FAMOTIDINE 20 MG TABLET PO SCH (08:17)
[2018-05-31] MEDS: AMIODARONE 200 MG TABLET PO SCH (08:17)
[2018-05-31] MEDS: CLOPIDOGREL 75 MG TABLET PO SCH (08:17)
[2018-05-31] MEDS: ASPIRIN CHEW 81 MG TABLET PO SCH (08:17)
[2018-05-31] MEDS: POLYETHYLENE GLYCOL 3350 17 GM PACKET PO SCH (08:20)
[2018-05-31] MEDS: INSULIN ASPART 300 UNIT/3 ML PEN SUBQ SCH ×4 (08:20→20:52)
[2018-05-31] MEDS ORDERED: LOSARTAN 50 MG TABLET PO SCH (09:00)
[2018-05-31] MEDS ORDERED: amLODIPine 5 MG TABLET PO SCH (09:00)
[2018-05-31] MEDS ORDERED: ENOXAPARIN 40 MG/0.4 ML SYRINGE SUBQ SCH (09:00)
[2018-05-31] MEDS: WARFARIN 1 MG TABLET PO SCH (14:08)
--- NOTE | 2018-05-31 16:32 | PROVIDER PROGRESS NOTE ---
Subjective - Prog Note Date Prog Note Date: 05/31/18 Prog Note Time: 12:00 - Subjective Pt reports feeling: Improved Subjective: Liudmila has no complaints except slight shortness of breath and ongoing dizziness. She also states she has been more tired today. She denies chest pain, nausea, vomiting, diarrhea, a rash or a worsening cough. Current Medications - Current Medications Current Medications: Active Medications: Acetaminophen (Tylenol) 650 mg PO Q4HR PRN Albuterol/Ipratropium (Duoneb) 3 ml INH Q4HR PRN Albuterol/Ipratropium (Duoneb) 3 ml INH RTQID [facility] Amiodarone HCl (Pacerone) 100 mg PO DAILY [facility] Aspirin (St Bola Aspirin) 81 mg PO DAILY [facility] Atorvastatin Calcium (Lipitor) 40 mg PO QPM [facility] Budesonide (Pulmicort) 0.5 mg INH RTBID [facility] Clopidogrel Bisulfate (Plavix) 75 mg PO DAILY [facility] Famotidine (Pepcid) 20 mg PO DAILY [facility] Furosemide (Lasix Inj 40 Mg Vial) 80 mg IVP BIDDIURETIC [facility] Furosemide (Lasix Inj 40 Mg Vial) 40 mg IVP ONCE ONE Insulin Aspart (Novolog) 1 - 9 unit SUBQ 0800,1200,1700,2100 [facility]; Protocol Meclizine HCl (Antivert) 25 mg PO Q6H PRN Polyethylene Glycol (Miralax) 17 gm PO DAILY [facility] Prochlorperazine Edisylate (Compazine Inj) 10 mg IVP Q6HR PRN Temazepam (Restoril) 7.5 mg PO QPM PRN Warfarin Sodium (Coumadin) 2 mg PO 1400 [facility] + Warfarin 2 mg PO x1 just today HOME meds: Amiodarone [Pacerone] 200 mg PO DAILY 05/30/18 Amlodipine Besylate 1 tab PO DAILY 05/30/18 Aspirin 81 mg PO DAILY 05/30/18 Atorvastatin Calcium 40 mg PO QPM 05/30/18 Benzonatate 200 mg PO TID PRN 05/30/18 Clopidogrel [Plavix] 75 mg PO DAILY 05/30/18 Fluticasone/Salmeterol [Advair 100-50 Diskus] 1 inh INH BID 05/30/18 Insulin Aspart [NovoLOG] 16 unit SUBQ TIDWM 05/30/18 Insulin Degludec [Tresiba] 60 unit SQ DAILY 05/30/18 Losartan [Cozaar] 25 mg PO DAILY 05/30/18 Meclizine [Antivert] 25 mg PO BID PRN 05/30/18 Metoprolol Succinate [Toprol Xl] 25 mg PO BID 05/30/18 Nitroglycerin [Nitrostat] 0.4 mg SL Q5MIN PRN 05/30/18 Scopolamine [Transderm-Scop] 1 patch TOP Q72H 05/30/18 Warfarin [Coumadin] 1 - 4 mg PO DAILY 05/30/18 Objective - Vital Signs/Intake & Output Reviewed Vital Signs: Yes Vital Signs: Vital Signs x48h Temp Pulse Resp BP Pulse Ox 05/31/18 16:00 37.2 C 65 24 132/40 H 98 05/31/18 11:28 36.9 C 65 20 123/43 L 97 Intake & Output: Intake & Output 05/28/18 05/29/18 05/30/18 05/31/18 23:59 23:59 23:59 23:59 Intake Total 520 1180 Output Total 720 2200 Balance -200 -1020 - Objective General Appearance: positive: No acute distress, Lethargic Eyes Bilateral: positive: Normal inspection Eyes: OU Conjunctivae pale ENT: positive: ENT inspection nml, Pharynx nml Neck: positive: Nml inspection, Thyroid nml, No JVD, Lymphadenopathy (R), Lymphadenopathy (L), Stiff neck Respiratory: positive: Chest non-tender, No respiratory distress, Wheezes, Rhonchi Cardiovascular: positive: No gallop, Irregularly irregular, Systolic murmur, Decreased pulse(s) Peripheral Pulses: 1+ Radial (R), 1+ Radial (L) Abdomen: positive: Non-tender, Nml bowel sounds, Other (rounded, obese, soft) Back: positive: Nml inspection Skin: positive: Color nml, No rash, Warm, Dry Extremities: positive: Non-tender, Full ROM, Pedal edema, Joint swelling Neurologic/Psychiatric: positive: Motor nml, Sensation nml, Disoriented to time, Weakness, Depressed mood/affect Reflexes: Bicep (R): 2+, Bicep (L): 2+ - Lab Results Fish Bones: 06/01/18 06:06 06/01/18 06:06 Other Labs: Lab Results x24hrs 05/31/18 05/31/18 05/31/18 Range/Units 11:08 07:18 05:15 WBC (4.8-10.8) x10^3/uL RBC (4.20-5.40) 10^6/uL Hgb (12.0-16.0) g/dL Hct (37.0-47.0) % MCV (81.0-99.0) fL MCH (27.0-31.0) pg MCHC (32.0-36.0) g/dL RDW (12.0-15.0) % Plt Count (130-450) 10^3/uL MPV (7.9-10.8) fL Neut # (Auto) (1.5-6.6) 10^3/uL Lymph # (Auto) (1.5-3.5) 10^3/uL Comal # (Auto) (0.0-1.0) 10^3/uL Eos # (Auto) (0.0-0.7) 10^3/uL Baso # (Auto) (0.0-0.1) 10^3/uL Absolute Nucleated RBC x10^3/uL Nucleated RBC % /100WBC PT (9.9-12.6) secs INR (0.8-1.2) POC Whole Bld Glucose 257 H 109 H (70 - 100) mg/dL Glycated Hemoglobin 6.7 H (4.6-6.2) % Estim Average Glucose 146 H (70-100) Troponin I (<0.49) ng/mL B-Natriuretic Peptide (5-100) pg/mL TSH (0.34-5.60) uIU/mL 05/31/18 05/31/18 05/31/18 Range/Units 05:15 05:15 05:15 WBC 8.9 (4.8-10.8) x10^3/uL RBC 3.88 L (4.20-5.40) 10^6/uL Hgb 11.5 L (12.0-16.0) g/dL Hct 35.0 L (37.0-47.0) % MCV 90.4 (81.0-99.0) fL MCH 29.7 (27.0-31.0) pg MCHC 32.9 (32.0-36.0) g/dL RDW 15.4 H (12.0-15.0) % Plt Count 188 (130-450) 10^3/uL MPV 8.3 (7.9-10.8) fL Neut # (Auto) 5.1 (1.5-6.6) 10^3/uL Lymph # (Auto) 2.1 (1.5-3.5) 10^3/uL Comal # (Auto) 1.4 H (0.0-1.0) 10^3/uL Eos # (Auto) 0.2 (0.0-0.7) 10^3/uL Baso # (Auto) 0.1 (0.0-0.1) 10^3/uL Absolute Nucleated RBC 0.00 x10^3/uL Nucleated RBC % 0.0 /100WBC PT (9.9-12.6) secs INR (0.8-1.2) POC Whole Bld Glucose (70 - 100) mg/dL Glycated Hemoglobin (4.6-6.2) % Estim Average Glucose (70-100) Troponin I (<0.49) ng/mL B-Natriuretic Peptide 637 H (5-100) pg/mL TSH 19.17 H (0.34-5.60) uIU/mL 05/31/18 05/30/18 05/30/18 Range/Units 05:15 21:25 20:18 WBC (4.8-10.8) x10^3/uL RBC (4.20-5.40) 10^6/uL Hgb (12.0-16.0) g/dL Hct (37.0-47.0) % MCV (81.0-99.0) fL MCH (27.0-31.0) pg MCHC (32.0-36.0) g/dL RDW (12.0-15.0) % Plt Count (130-450) 10^3/uL MPV (7.9-10.8) fL Neut # (Auto) (1.5-6.6) 10^3/uL Lymph # (Auto) (1.5-3.5) 10^3/uL Comal # (Auto) (0.0-1.0) 10^3/uL Eos # (Auto) (0.0-0.7) 10^3/uL Baso # (Auto) (0.0-0.1) 10^3/uL Absolute Nucleated RBC x10^3/uL Nucleated RBC % /100WBC PT 18.0 H (9.9-12.6) secs INR 1.6 H (0.8-1.2) POC Whole Bld Glucose 159 H (70 - 100) mg/dL Glycated Hemoglobin (4.6-6.2) % Estim Average Glucose (70-100) Troponin I < 0.04 (<0.49) ng/mL B-Natriuretic Peptide (5-100) pg/mL TSH (0.34-5.60) uIU/mL 05/30/18 05/30/18 05/30/18 Range/Units 16:46 16:10 08:45 WBC (4.8-10.8) x10^3/uL RBC (4.20-5.40) 10^6/uL Hgb (12.0-16.0) g/dL Hct (37.0-47.0) % MCV (81.0-99.0) fL MCH (27.0-31.0) pg MCHC (32.0-36.0) g/dL RDW (12.0-15.0) % Plt Count (130-450) 10^3/uL MPV (7.9-10.8) fL Neut # (Auto) (1.5-6.6) 10^3/uL Lymph # (Auto) (1.5-3.5) 10^3/uL Comal # (Auto) (0.0-1.0) 10^3/uL Eos # (Auto) (0.0-0.7) 10^3/uL Baso # (Auto) (0.0-0.1) 10^3/uL Absolute Nucleated RBC x10^3/uL Nucleated RBC % /100WBC PT (9.9-12.6) secs INR (0.8-1.2) POC Whole Bld Glucose 110 H (70 - 100) mg/dL Glycated Hemoglobin 6.6 H (4.6-6.2) % Estim Average Glucose 143 H (70-100) Troponin I < 0.04 (<0.49) ng/mL B-Natriuretic Peptide (5-100) pg/mL TSH (0.34-5.60) uIU/mL ABX Reporting Has patient been on IV antibiotics over the past 48 hours?: No Sepsis Event Note (H) - Evaluation Current Stage of Sepsis: Ruled out Assessment/Plan - Problem List (1) Acute diastolic CHF, NYHA class 2 and ACC/AHA stage C Impression: -Echo showed , - Increased dosing of IV lasix Plan: Continue to support respiratory status, wean oxygen, daily weights, vital signs (2) Asthma Impression: - Does not have home oxygen, now on 2L nasal cannula - Expiratory wheezing on exam, improved since admission - Diuretics for treatment of CHF Plan: Respiratory cares with supplemental oxygen, duo-nebs, and budesinide Qualifiers: Asthma severity: mild Asthma persistence: intermittent Asthma complication type: unspecified Qualified Code(s): J45.20 - Mild intermittent asthma, uncomplicated (3) Bradycardia Impression: - Was on metoprolol and Amiodarone 200 upon admission - Holding metoprolol, based on continued bradycardia in the 50's, some reports of 60's Plan: Continue only daily Amiodarone at 100 mg PO, Telemetry (4) Dyspnea Impression: - Continues on 2L nasal cannula - NO home oxygen Plan: Continue respiratory cares, consider home oxygen testing prior to discharge Qualifiers: Dyspnea type: dyspnea on exertion Qualified Code(s): R06.09 - Other forms of dyspnea (5) Orthopnea Impression: - This is improved since admission, and the patient actually feels less dizzy when lying a little flatter - Getting diuretics for CHF Plan: Continue to support respiratory status, CHF treatment and frequent nursing cares (6) Subtherapeutic anticoagulation Impression: - Likely d/t acute CHF and lack of perfusion - INR 1.6 today - Warfarin increased to 4mg today Plan: routine labs, continue Warfarin indicated for a-fib (7) Atrial fibrillation with RVR Impression: - Beta alex, norvasc, and losartan on hold to leave room for diuretics - Heart rates still low today 50-60's - Patient has continued dizziness Plan: Continue Amiodarone 100mg daily, continue telemetry, Warfarin, routine labs (8) Essential (primary) hypertension Impression: - Metoprolol, Amiodarone, norvasc, and Losartan at home - B/Ps 130/42 Plan: continue to monitor, hold usual antihypertensives to leave room for diuretics (9) Intracranial vascular stenosis Impression: - As per imaging (MRI/MRA of head on 04/01/2018), may explain ongoing, chronic vertigo - Severe stenosis of the left [employer], high grade stenosis of the right A1 segment and throughout the left [employer] - Results shared with daughter, Diane, who was very happy to at least have a possible explanation for her mother's symptoms Plan: Continue to monitor vertigo, change positions slowly, treat symptoms (10) Obesity (BMI 30.0-34.9) Impression: - stable, chronic Plan: Continue diuretics (11) Vertigo Impression: - Ongoing and chronic - Several culprits including [employer] stenosis, bradycardia and now new hypothyroidism Plan: Continue to manage symptoms (12) Hypothyroidism Impression: - TSH is very elevated at 19.17 - Free T3 and T4 to follow Plan: Start oral replacement in the AM, await follow up labs
[2018-05-31] MEDS ORDERED: WARFARIN 1 MG TABLET PO ONE (16:35)
[2018-05-31] MEDS ORDERED: FUROSEMIDE 40 MG/4 ML VIAL IVP ONE (17:00)
[2018-05-31] MEDS ORDERED: CARBOXYMETHYLCELLULOSE OPHTH DROPS EACHEYE PRN (19:52)
[2018-05-31] MEDS: ATORVASTATIN 40 MG TABLET PO SCH (20:51)
[2018-06-01] MEDS: SODIUM CHLORIDE FLUSH 0.9% 10 ML SYRINGE IVP SCH ×3 (00:59→17:42)
[2018-06-01] MEDS ORDERED: FUROSEMIDE 40 MG/4 ML VIAL IVP SCH (06:00)
[2018-06-01 06:11] LABS: BASOPHILS # (AUTO) 0.1 10^3/uL (0.0-0.1); BASOPHILS % (AUTO) 1.2 %; EOSINOPHILS # (AUTO) 0.4 10^3/uL (0.0-0.7); EOSINOPHILS % (AUTO) 5.6 %; HGB - HEMOGLOBIN 12.7 g/dL (12.0-16.0); LYMPHOCYTES # (AUTO) 1.9 10^3/uL (1.5-3.5); LYMPHOCYTES % (AUTO) 25.4 %; MEAN CORPUSCULAR HEMOGLOBIN 29.8 pg (27.0-31.0); MEAN CORPUSCULAR HGB CONC 33.3 g/dL (32.0-36.0); MEAN CORPUSCULAR VOLUME 89.3 fL (81.0-99.0); MEAN PLATELET VOLUME 7.9 fL (7.9-10.8); MONOCYTES % (AUTO) 13.7 %; NEUTROPHILS # (AUTO) 4.1 10^3/uL (1.5-6.6); NEUTROPHILS % (AUTO) 54.1 %; PLT - PLATELET COUNT 187 10^3/uL (130-450); RED BLOOD COUNT 4.26 10^6/uL (4.20-5.40); RED CELL DISTRIBUTION WIDTH 15.6 % (12.0-15.0); WHITE BLOOD COUNT 7.6 x10^3/uL (4.8-10.8)
[2018-06-01 06:17] LABS: INR 1.9 (0.8-1.2); PT - PROTHROMBIN TIME 21.5 secs (9.9-12.6)
[2018-06-01 06:27] LABS: ALBUMIN 3.3 g/dL (3.2-5.5); ALBUMIN/GLOBULIN RATIO 0.8 (1.0-2.2); BILIRUBIN,TOTAL 0.9 mg/dL (0.2-1.0); CALCIUM 8.7 mg/dL (8.5-10.3); CREATININE 1.8 mg/dL (0.4-1.0); MAGNESIUM 2.3 mg/dL (1.7-2.8); PHOSPHORUS 4.3 mg/dL (2.5-4.6); TOTAL PROTEIN 7.2 g/dL (6.7-8.2)
[2018-06-01] MEDS: IPRATROPIUM/ALBUTEROL 3 ML NEB INH SCH ×4 (07:20→20:16)
[2018-06-01] MEDS: BUDESONIDE 0.5 MG/2 ML NEB INH SCH ×2 (07:20→20:16)
[2018-06-01] MEDS: INSULIN ASPART 300 UNIT/3 ML PEN SUBQ SCH ×4 (08:36→20:38)
[2018-06-01] MEDS: AMIODARONE 200 MG TABLET PO SCH (08:36)
[2018-06-01] MEDS: FAMOTIDINE 20 MG TABLET PO SCH (08:37)
[2018-06-01] MEDS: ASPIRIN CHEW 81 MG TABLET PO SCH (08:37)
[2018-06-01] MEDS: POLYETHYLENE GLYCOL 3350 17 GM PACKET PO SCH (08:37)
[2018-06-01] MEDS: CLOPIDOGREL 75 MG TABLET PO SCH (08:37)
[2018-06-01] MEDS ORDERED: LEVOTHYROXINE 100 MCG VIAL IVP ONE (09:12)
[2018-06-01] MEDS ORDERED: LEVOTHYROXINE 112 MCG TABLET PO SCH (10:13)
--- NOTE | 2018-06-01 10:37 | PROVIDER PROGRESS NOTE ---
Subjective - Prog Note Date Prog Note Date: 06/01/18 Prog Note Time: 09:00 - Subjective Pt reports feeling: Improved Subjective: Liudmila complains of ongoing dizziness. She denies chest pain, nausea, vomiting, increased shortness of breath or a rash. Current Medications - Current Medications Current Medications: Active Medications: Acetaminophen (Tylenol) 650 mg PO Q4HR PRN Albuterol/Ipratropium (Duoneb) 3 ml INH Q4HR PRN Albuterol/Ipratropium (Duoneb) 3 ml INH RTQID [facility] Amiodarone HCl (Pacerone) 100 mg PO DAILY [facility] Aspirin (St Bola Aspirin) 81 mg PO DAILY [facility] Atorvastatin Calcium (Lipitor) 40 mg PO QPM [facility] Budesonide (Pulmicort) 0.5 mg INH RTBID [facility] Carboxymethylcellulose (Refresh 1% Ophth Drops) 1 drops [facility] PRN PRN Clopidogrel Bisulfate (Plavix) 75 mg PO DAILY [facility] Famotidine (Pepcid) 20 mg PO DAILY [facility] Furosemide (Lasix) 60 mg PO BIDWM [facility] Insulin Aspart (Novolog) 1 - 9 unit SUBQ 0800,1200,1700,2100 [facility]; Protocol Meclizine HCl (Antivert) 25 mg PO Q6H PRN Metoprolol Succinate (Toprol Xl) 12.5 mg PO BIDWM [facility] Polyethylene Glycol (Miralax) 17 gm PO DAILY [facility] Prochlorperazine Edisylate (Compazine Inj) 10 mg IVP Q6HR PRN Spironolactone (Aldactone) 25 mg PO DAILY [facility] Temazepam (Restoril) 7.5 mg PO QPM PRN Warfarin Sodium (Coumadin) 4 mg PO 1400 [facility] HOME meds: Amiodarone [Pacerone] 200 mg PO DAILY 05/30/18 Amlodipine Besylate 1 tab PO DAILY 05/30/18 Aspirin 81 mg PO DAILY 05/30/18 Atorvastatin Calcium 40 mg PO QPM 05/30/18 Benzonatate 200 mg PO TID PRN 05/30/18 Clopidogrel [Plavix] 75 mg PO DAILY 05/30/18 Fluticasone/Salmeterol [Advair 100-50 Diskus] 1 inh INH BID 05/30/18 Insulin Aspart [NovoLOG] 16 unit SUBQ TIDWM 05/30/18 Insulin Degludec [Tresiba] 60 unit SQ DAILY 05/30/18 Losartan [Cozaar] 25 mg PO DAILY 05/30/18 Meclizine [Antivert] 25 mg PO BID PRN 05/30/18 Metoprolol Succinate [Toprol Xl] 25 mg PO BID 05/30/18 Nitroglycerin [Nitrostat] 0.4 mg SL Q5MIN PRN 05/30/18 Scopolamine [Transderm-Scop] 1 patch TOP Q72H 05/30/18 Warfarin [Coumadin] 1 - 4 mg PO DAILY 05/30/18 Objective - Vital Signs/Intake & Output Reviewed Vital Signs: Yes Vital Signs: Vital Signs x48h Temp Pulse Pulse Resp BP Pulse Ox 06/01/18 07:30 36.6 C 63 18 119/57 L 99 06/01/18 07:23 70 12 Intake & Output: Intake & Output 05/29/18 05/30/18 05/31/18 06/01/18 23:59 23:59 23:59 23:59 Intake Total 520 1630 550 Output Total 720 4100 1200 Balance -200 -2470 -650 - Objective General Appearance: positive: No acute distress, Alert Eyes Bilateral: positive: PERRL ENT: positive: Pharynx nml, No signs of dehydration Neck: positive: Nml inspection, Thyroid nml, Stiff neck, Other (large neck circumferance) Respiratory: positive: Chest non-tender, No respiratory distress, Wheezes (slight expiratory wheezes at times), Rhonchi Cardiovascular: positive: No gallop, Irregularly irregular, Bradycardia, Systolic murmur, Decreased pulse(s) Peripheral Pulses: 1+ Radial (R), 1+ Radial (L) Abdomen: positive: Non-tender, Nml bowel sounds, Other (rounded, soft) Back: positive: Nml inspection Skin: positive: Color nml, No rash, Warm, Dry Extremities: positive: Non-tender, Full ROM, Nml appearance, No pedal edema Neurologic/Psychiatric: positive: Oriented x3, Motor nml, Sensation nml, Mood/a ffect nml, Weakness Reflexes: Bicep (R): 3+, Bicep (L): 3+ - Lab Results Fish Bones: 06/01/18 06:06 06/01/18 06:06 Other Labs: Lab Results x24hrs 06/01/18 06/01/18 06/01/18 Range/Units 07:27 06:06 06:06 WBC (4.8-10.8) x10^3/uL RBC (4.20-5.40) 10^6/uL Hgb (12.0-16.0) g/dL Hct (37.0-47.0) % MCV (81.0-99.0) fL MCH (27.0-31.0) pg MCHC (32.0-36.0) g/dL RDW (12.0-15.0) % Plt Count (130-450) 10^3/uL MPV (7.9-10.8) fL Neut # (Auto) (1.5-6.6) 10^3/uL Lymph # (Auto) (1.5-3.5) 10^3/uL [place]anner # (Auto) (0.0-1.0) 10^3/uL Eos # (Auto) (0.0-0.7) 10^3/uL Baso # (Auto) (0.0-0.1) 10^3/uL Absolute Nucleated RBC x10^3/uL Nucleated RBC % /100WBC PT (9.9-12.6) secs INR (0.8-1.2) Sodium (135-145) mmol/L Potassium (3.5-5.0) mmol/L Chloride (101-111) mmol/L Carbon Dioxide (21-32) mmol/L Anion Gap (6-13) BUN (6-20) mg/dL Creatinine (0.4-1.0) mg/dL Estimated GFR (MDRD) (>89) Glucose (70-100) mg/dL POC Whole Bld Glucose 122 H (70 - 100) mg/dL Lactic Acid (0.5-2.2) mmol/L Calcium (8.5-10.3) mg/dL Phosphorus (2.5-4.6) mg/dL Magnesium (1.7-2.8) mg/dL Total Bilirubin (0.2-1.0) mg/dL AST (10-42) IU/L ALT (10-60) IU/L Alkaline Phosphatase (42-121) IU/L B-Natriuretic Peptide 146 H (5-100) pg/mL Total Protein (6.7-8.2) g/dL Albumin (3.2-5.5) g/dL Globulin (2.1-4.2) g/dL Albumin/Globulin Ratio (1.0-2.2) Free T4 (0.58-1.64) ng/dL Free T3 pg/mL 4.28 H (2.5-3.9) pg/mL 06/01/18 06/01/18 06/01/18 Range/Units 06:06 06:06 06:06 WBC (4.8-10.8) x10^3/uL RBC (4.20-5.40) 10^6/uL Hgb (12.0-16.0) g/dL Hct (37.0-47.0) % MCV (81.0-99.0) fL MCH (27.0-31.0) pg MCHC (32.0-36.0) g/dL RDW (12.0-15.0) % Plt Count (130-450) 10^3/uL MPV (7.9-10.8) fL Neut # (Auto) (1.5-6.6) 10^3/uL Lymph # (Auto) (1.5-3.5) 10^3/uL Banner # (Auto) (0.0-1.0) 10^3/uL Eos # (Auto) (0.0-0.7) 10^3/uL Baso # (Auto) (0.0-0.1) 10^3/uL Absolute Nucleated RBC x10^3/uL Nucleated RBC % /100WBC PT (9.9-12.6) secs INR (0.8-1.2) Sodium 141 (135-145) mmol/L Potassium 3.6 (3.5-5.0) mmol/L Chloride 102 (101-111) mmol/L Carbon Dioxide 27 (21-32) mmol/L Anion Gap 12.0 (6-13) BUN 41 H (6-20) mg/dL Creatinine 1.8 H (0.4-1.0) mg/dL Estimated GFR (MDRD) 28 L (>89) Glucose 126 H (70-100) mg/dL POC Whole Bld Glucose (70 - 100) mg/dL Lactic Acid 0.8 (0.5-2.2) mmol/L Calcium 8.7 (8.5-10.3) mg/dL Phosphorus 4.3 (2.5-4.6) mg/dL Magnesium 2.3 (1.7-2.8) mg/dL Total Bilirubin 0.9 (0.2-1.0) mg/dL AST 30 (10-42) IU/L ALT 71 H (10-60) IU/L Alkaline Phosphatase 72 (42-121) IU/L B-Natriuretic Peptide (5-100) pg/mL Total Protein 7.2 (6.7-8.2) g/dL Albumin 3.3 (3.2-5.5) g/dL Globulin 3.9 (2.1-4.2) g/dL Albumin/Globulin Ratio 0.8 L (1.0-2.2) Free T4 0.78 (0.58-1.64) ng/dL Free T3 pg/mL (2.5-3.9) pg/mL 06/01/18 06/01/18 05/31/18 Range/Units 06:06 06:06 20:48 WBC 7.6 (4.8-10.8) x10^3/uL RBC 4.26 (4.20-5.40) 10^6/uL Hgb 12.7 (12.0-16.0) g/dL Hct 38.0 (37.0-47.0) % MCV 89.3 (81.0-99.0) fL MCH 29.8 (27.0-31.0) pg MCHC 33.3 (32.0-36.0) g/dL RDW 15.6 H (12.0-15.0) % Plt Count 187 (130-450) 10^3/uL MPV 7.9 (7.9-10.8) fL Neut # (Auto) 4.1 (1.5-6.6) 10^3/uL Lymph # (Auto) 1.9 (1.5-3.5) 10^3/uL Banner # (Auto) 1.0 (0.0-1.0) 10^3/uL Eos # (Auto) 0.4 (0.0-0.7) 10^3/uL Baso # (Auto) 0.1 (0.0-0.1) 10^3/uL Absolute Nucleated RBC 0.00 x10^3/uL Nucleated RBC % 0.0 /100WBC PT 21.5 H (9.9-12.6) secs INR 1.9 H (0.8-1.2) Sodium (135-145) mmol/L Potassium (3.5-5.0) mmol/L Chloride (101-111) mmol/L Carbon Dioxide (21-32) mmol/L Anion Gap (6-13) BUN (6-20) mg/dL Creatinine (0.4-1.0) mg/dL Estimated GFR (MDRD) (>89) Glucose (70-100) mg/dL POC Whole Bld Glucose 289 H (70 - 100) mg/dL Lactic Acid (0.5-2.2) mmol/L Calcium (8.5-10.3) mg/dL Phosphorus (2.5-4.6) mg/dL Magnesium (1.7-2.8) mg/dL Total Bilirubin (0.2-1.0) mg/dL AST (10-42) IU/L ALT (10-60) IU/L Alkaline Phosphatase (42-121) IU/L B-Natriuretic Peptide (5-100) pg/mL Total Protein (6.7-8.2) g/dL Albumin (3.2-5.5) g/dL Globulin (2.1-4.2) g/dL Albumin/Globulin Ratio (1.0-2.2) Free T4 (0.58-1.64) ng/dL Free T3 pg/mL (2.5-3.9) pg/mL 05/31/18 05/31/18 Range/Units 16:33 11:08 WBC (4.8-10.8) x10^3/uL RBC (4.20-5.40) 10^6/uL Hgb (12.0-16.0) g/dL Hct (37.0-47.0) % MCV (81.0-99.0) fL MCH (27.0-31.0) pg MCHC (32.0-36.0) g/dL RDW (12.0-15.0) % Plt Count (130-450) 10^3/uL MPV (7.9-10.8) fL Neut # (Auto) (1.5-6.6) 10^3/uL Lymph # (Auto) (1.5-3.5) 10^3/uL Banner # (Auto) (0.0-1.0) 10^3/uL Eos # (Auto) (0.0-0.7) 10^3/uL Baso # (Auto) (0.0-0.1) 10^3/uL Absolute Nucleated RBC x10^3/uL Nucleated RBC % /100WBC PT (9.9-12.6) secs INR (0.8-1.2) Sodium (135-145) mmol/L Potassium (3.5-5.0) mmol/L Chloride (101-111) mmol/L Carbon Dioxide (21-32) mmol/L Anion Gap (6-13) BUN (6-20) mg/dL Creatinine (0.4-1.0) mg/dL Estimated GFR (MDRD) (>89) Glucose (70-100) mg/dL POC Whole Bld Glucose 145 H 257 H (70 - 100) mg/dL Lactic Acid (0.5-2.2) mmol/L Calcium (8.5-10.3) mg/dL Phosphorus (2.5-4.6) mg/dL Magnesium (1.7-2.8) mg/dL Total Bilirubin (0.2-1.0) mg/dL AST (10-42) IU/L ALT (10-60) IU/L Alkaline Phosphatase (42-121) IU/L B-Natriuretic Peptide (5-100) pg/mL Total Protein (6.7-8.2) g/dL Albumin (3.2-5.5) g/dL Globulin (2.1-4.2) g/dL Albumin/Globulin Ratio (1.0-2.2) Free T4 (0.58-1.64) ng/dL Free T3 pg/mL (2.5-3.9) pg/mL ABX Reporting Has patient been on IV antibiotics over the past 48 hours?: No Sepsis Event Note (H) - Evaluation Current Stage of Sepsis: Ruled out Assessment/Plan - Problem List (1) Acute diastolic CHF, NYHA class 2 and ACC/AHA stage C Impression: -Echo showed, EF 65-70%, Grade 2 diastolic dysfunction, moderate increased LA, no valve abnormalities, no RVSP was calculated - PO lasix/spironolactone, no IV access today Plan: Continue to support respiratory status, wean oxygen, daily weights, vital signs (2) Asthma Impression: - Does not have home oxygen, remains on 2L nasal cannula - Expiratory wheezing on exam, improved since admission - Diuretics for treatment of CHF Plan: Respiratory cares with supplemental oxygen, duo-nebs, and budesinide Qualifiers: Asthma severity: mild Asthma persistence: intermittent Asthma complication type: unspecified Qualified Code(s): J45.20 - Mild intermittent asthma, uncomplicated (3) Bradycardia Impression: - Was on metoprolol and Amiodarone 200 upon admission - Heart rates much improved 65-80's Plan: Continue only daily Amiodarone at 100 mg PO, resume low dose metoprolol, continue to hold Norvasc, and losartan, Telemetry (4) Dyspnea Impression: - Continues on 2L nasal cannula - NO home oxygen Plan: Continue respiratory cares, consider home oxygen testing prior to discharge Qualifiers: Dyspnea type: dyspnea on exertion Qualified Code(s): R06.09 - Other forms of dyspnea (5) Orthopnea Impression: - This is improved since admission, and the patient actually feels less dizzy when lying a little flatter - Patient was in the chair for breakfast, although had mild complaints of dizziness - Getting diuretics for CHF Plan: Continue to support respiratory status, CHF treatment and frequent nursing cares (6) Subtherapeutic anticoagulation Impression: - Likely d/t acute CHF and lack of perfusion - INR 1.9 today - Warfarin increased to 4mg today Plan: routine labs, continue Warfarin indicated for a-fib (7) Atrial fibrillation with RVR Impression: - Norvasc, and losartan on hold to leave room for diuretics - Heart rates now nearly normal 65-80's - Patient has continued dizziness Plan: Continue Amiodarone 100mg daily, low dose metoprolol to start today, continue telemetry, Warfarin, routine labs (8) Essential (primary) hypertension Impression: - Metoprolol, Amiodarone, norvasc, and Losartan at home - B/Ps 119/57, improved diastolic readings - Resumed low dose metoprolol today Plan: continue to monitor, hold usual antihypertensives to leave room for diuretics (9) Intracranial vascular stenosis Impression: - As per imaging (MRI/MRA of head on 04/01/2018), may explain ongoing, chronic vertigo - Severe stenosis of the left STANDPIPE TENDER, high grade stenosis of the right A1 segment and throughout the left STANDPIPE TENDER - Results shared with daughter, Diane, who was very happy to at least have a possible explanation for her mother's symptoms Plan: Continue to monitor vertigo, change positions slowly, treat symptoms (10) Obesity (BMI 30.0-34.9) Impression: - stable, chronic Plan: Continue diuretics (11) Vertigo Impression: - Ongoing and chronic - Several culprits including STANDPIPE TENDER stenosis, bradycardia and now new hypothyroidism Plan: Continue to manage symptoms (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
[2018-06-01] MEDS: METOPROLOL SUCCINATE 25 MG TABLET PO SCH ×2 (10:48→17:48)
[2018-06-01] MEDS: SPIRONOLACTONE 25 MG TABLET PO SCH (10:48)
[2018-06-01] MEDS ORDERED: WARFARIN 1 MG TABLET PO SCH (14:00)
[2018-06-01] MEDS: FUROSEMIDE 40 MG TABLET PO SCH (17:48)
[2018-06-01] MEDS ORDERED: SODIUM CHLORIDE 0.65% NASAL SPRAY NAS PRN (19:26)
[2018-06-01] MEDS: ATORVASTATIN 40 MG TABLET PO SCH (20:36)
[2018-06-01] MEDS: OXYMETAZOLINE NASAL SPRAY NAS SCH ×2 (20:37→20:40)
[2018-06-01] MEDS ORDERED: INSULIN GLARGINE 300 UNIT/3 ML PEN SUBQ SCH (21:00)
[2018-06-02 06:17] LABS: BASOPHILS # (AUTO) 0.1 10^3/uL (0.0-0.1); BASOPHILS % (AUTO) 1.2 %; EOSINOPHILS # (AUTO) 0.5 10^3/uL (0.0-0.7); EOSINOPHILS % (AUTO) 7.4 %; HGB - HEMOGLOBIN 12.7 g/dL (12.0-16.0); LYMPHOCYTES # (AUTO) 1.1 10^3/uL (1.5-3.5); LYMPHOCYTES % (AUTO) 16.5 %; MEAN CORPUSCULAR HEMOGLOBIN 29.7 pg (27.0-31.0); MEAN CORPUSCULAR VOLUME 90.1 fL (81.0-99.0); MEAN PLATELET VOLUME 8.1 fL (7.9-10.8); MONOCYTES # (AUTO) 0.9 10^3/uL (0.0-1.0); MONOCYTES % (AUTO) 13.1 %; NEUTROPHILS # (AUTO) 4.2 10^3/uL (1.5-6.6); NEUTROPHILS % (AUTO) 61.8 %; PLT - PLATELET COUNT 215 10^3/uL (130-450); RED BLOOD COUNT 4.26 10^6/uL (4.20-5.40); RED CELL DISTRIBUTION WIDTH 15.6 % (12.0-15.0); WHITE BLOOD COUNT 6.8 x10^3/uL (4.8-10.8)
[2018-06-02 06:22] LABS: INR 2.8 (0.8-1.2); PT - PROTHROMBIN TIME 30.9 secs (9.9-12.6)
[2018-06-02 06:27] LABS: ALBUMIN 3.3 g/dL (3.2-5.5); ALBUMIN/GLOBULIN RATIO 0.8 (1.0-2.2); BILIRUBIN,TOTAL 0.5 mg/dL (0.2-1.0); CALCIUM 8.8 mg/dL (8.5-10.3); CREATININE 1.9 mg/dL (0.4-1.0); TOTAL PROTEIN 7.7 g/dL (6.7-8.2)
[2018-06-02] MEDS ORDERED: LEVOTHYROXINE 112 MCG TABLET PO SCH (07:00)
[2018-06-02] MEDS: BUDESONIDE 0.5 MG/2 ML NEB INH SCH (07:40)
[2018-06-02 08:19] VITALS: BP 123/52
[2018-06-02] MEDS: METOPROLOL SUCCINATE 25 MG TABLET PO SCH (08:25)
[2018-06-02] MEDS: AMIODARONE 200 MG TABLET PO SCH (08:26)
[2018-06-02] MEDS: FUROSEMIDE 40 MG TABLET PO SCH (08:26)
[2018-06-02] MEDS: SPIRONOLACTONE 25 MG TABLET PO SCH (08:27)
[2018-06-02] MEDS: ASPIRIN CHEW 81 MG TABLET PO SCH (08:27)
[2018-06-02] MEDS: FAMOTIDINE 20 MG TABLET PO SCH (08:27)
[2018-06-02] MEDS: CLOPIDOGREL 75 MG TABLET PO SCH (08:27)
[2018-06-02] MEDS: INSULIN ASPART 300 UNIT/3 ML PEN SUBQ SCH ×2 (08:30→11:58)
[2018-06-02] MEDS: POLYETHYLENE GLYCOL 3350 17 GM PACKET PO SCH (08:31)
[2018-06-02] MEDS: OXYMETAZOLINE NASAL SPRAY NAS SCH (08:31)
--- NOTE | 2018-06-02 12:01 | Discharge Plan ---
Discharge Plan Disposition: 06 Home Health Service Condition: Good Prescriptions: Amiodarone HCl [Pacerone] 100 mg PO DAILY #30 tablet Fluticasone [Flonase] 1 sprays AYAKA DAILY #1 bottle Furosemide [Lasix] 20 mg PO BIDWM #60 tablet Insulin Aspart [NovoLOG] 10 unit SUBQ TIDWM #1 pen Insulin Degludec [Tresiba] 50 unit SQ DAILY #1 vial Losartan Potassium 12.5 mg PO DAILY #30 tablet Metoprolol Succinate [Toprol Xl] 12.5 mg PO BID #30 tab.er.24h Oxymetazoline HCl [Afrin] 15 ml NS BID #1 mist Spironolactone [Aldactone] 25 mg PO DAILY #30 tablet Warfarin [Coumadin] 3 mg PO DAILY #30 tablet Diet: Diabetic Activity Restrictions: Activity as Tolerated Weight Bearing: Full Weight Instruction Topics: Meclizine tablets or capsules, Furosemide tablets Additional Instructions or Follow Up instructions: Fluid overload/CHF: You were admitted for treatment of congestive heart failure, and were given high dose IV lasix. This dose was adjusted to an ending dose of lasix (furosemide) twice daily, and the addition of Spironolactone. If you were previously prescribed Potassium, you need to stop taking Potassium. Hypoxia/low oxygen: You required oxygen at first, and weaned off of this. This was due to the fluid overload. Bradycardia/low heart rates: Your heart rate was very low 45-55, so Amiodarone was cut in 1/2 at 100 mg, and metoprolol was put on hold. The metoprolol was resumed at 1/2, and your heart rates are favorable between 70-80. Atrial fibrillation/anticoagulation: Your INR was sub-therapeutic during your stay and this is likely due to heart failure in which the liver was being well perfused with blood. Today your INR is 1.9, so we recommend that you continue your Coumadin at 3mg daily and re-check the INR on Tuesday. Bloody nose/sinusitis: Since wearing your oxygen, you developed a blood nose, which is very common. Please continue the Afrin nasal spray for the next 2 days, then stop. Please continue the flonase daily to keep your nasal passages clear of mucous (also a cause of dizziness for some people). 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 This matches up with your complaints of dizziness, worse when turning your head to the right or on your right side in bed. I spoke with Dr. Shree Ludwig, [facility] who did not have any neurology perspective follow up recommendations. He also did not recommend any surgical interventions for this condition. He pointed out that there is an increased risk of stroke by having this type and location of stenosis, so stay on Plavix. He also believed that this vertigo (dizziness) is a peripheral vertigo rather than a central vertigo, so an appointment with ENT or an operations research analyst would not be needed. Diabetes: Your hemoglobin A1C was 6.7%, and this value can be as high as 7.5% for a lady of your age. I suggest to make slight adjustments to your previous routine. The tresiba can be adjusted down to 50 units daily, and the Aspart down to 10 units three times per day with meals. Becoming hypoglycemia (low blood sugars) can make you dizzy and/or cause falls. Dr. Tawanda Bolton is getting a discharge summary from me in the next few hours regarding this stay and the medication adjustments. It was great taking care of you! Best of luck with your upcoming cardiac stents. Please see your PCP within a week of this stay and plan on undergoing your upcoming cardiac cath. Follow-Up Care: Home Health - PT, Home Health - OT No Smoking: If you smoke, Please STOP! Call for help. Follow-up with: Geno Zhao ARNP [Primary Care Provider] -
--- NOTE | 2018-06-02 13:07 | DISCHARGE SUMMARY ---
"Discharge Summary Admit Date: 05/30/18 Discharge Date: 06/02/18 Discharging Provider: MIGUEL Bergman Primary Care Provider: Aracely Jones Code Status: Attempt Resuscitation Condition at Discharge: Good Discharge Disposition: 06 Home Health Service - DIAGNOSES Admission Diagnoses: Acute on chronic diastolic (congestive) heart failure (I50.33) Unspecified asthma, uncomplicated (J45.909) Bradycardia, unspecified (R00.1) Dyspnea, unspecified (R06.00) Orthopnea (R06.01) Encounter for therapeutic drug level monitoring (Z51.81) Unspecified atrial fibrillation (I48.91) Athscl heart disease of [place] coronary artery w/o ang pctrs (I25.10) Chronic kidney disease, stage 3 (moderate) (N18.3) Type 2 diabetes mellitus with other specified complication (E11.69) Essential (primary) hypertension (I10) Presence of coronary angioplasty implant and graft (Z95.5) Cerebrovascular disease, unspecified (I67.9) Non-ST elevation (NSTEMI) myocardial infarction (I21.4) Obesity, unspecified (E66.9) Dizziness and giddiness (R42) Unspecified diastolic (congestive) heart failure (I50.30) Discharge Diagnoses with Status of Each Condition: Acute on chronic diastolic CHF, NYHA class 2 and ACC/AHA stage C (I50.33) chronic, stable, changed diuretic therapy Asthma (J45.909) chronic, stable, no longer requires oxygen Bradycardia (R00.1) resolved, resumed low dose metoprolol 12.5mg BID, reduced amiodarone to 100 mg PO daily Dyspnea (R06.00) resolved Orthopnea (R06.01) resolved Subtherapeutic anticoagulation (Z51.81) resolved, last INR was 2.8. Instructed to re-check INR on Tuesday and continue with 2 mg daily Atrial fibrillation with RVR (I48.91) SR upon discharge Essential hypertension (I10) chronic, stable Intracranial vascular stenosis (I67.9) chronic, stable, called [facility] who reviewed imaging and had no recommendations. Spoke with Dr. 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 The patient presented to the ED via private car with complaints of a 4-5 day history of progressive shortness of breath, dizziness and increased peripheral swelling. She called her PCP on Tuesday (yesterday) who gave her a refill of the Meclizine for her complaints of dizziness. Upon my exam the patient admitted to a gradual onset of progressive shortness of breath that becomes worse with activity or lying flat in bed, increased leg edema, poor appetite, and ongoing dizziness. She denied acute chest pain, chest pressure, headaches, productive cough, fever, chills, recent illness, or a new rash. She also admitted to her breathing being much improved since wearing the oxygen that was placed in the ED. Physical exam revealed very diminished lung sounds with prominent expiratory wheezing, labored breathing with speaking, a distant S3 gallop, + murmur, increased abdominal edema, and increased peripheral edema. Labs showed anemia with an H/H of 12.4/37.6, platelets of 109, BUN of 39, creatinine of 1.8, GFR of 28, glucose of 146, AST 122, ALT 135, troponin of 0.04, lipase of 55, INR of 1.4, & BNP of 565. Vital signs showed a very low heart rate in the 40's, temp 35.7 C, RR 14, B/P 111/53, and O2 of 97% on 2L nasal cannula. Records indicate that the patient was discharged from [facility] on 04/06/2018 after undergoing a complex PCI with anesthesiologist assistant of an intra-aortic balloon pump. She was sub-therapeutic on her INR at the time of discharge with a value of 1.5 and her last INR completed by her PCP was also low at 1.3. Once arriving on the nursing floor, she is found to have very light blood sugars, so her home scheduled insulin are on hold. Since her platelet count is low, a Lovenox bridge may be contraindicated. She will be admitted to observation for aggressive diuresis, diabetes sugar control, symptom management of her dyspnea and dizziness, and to monitor effectiveness of resolution of apparent liver congestion caused by this acute CHF. - CONSULTS | PROCEDURES Consultations: Phone call to [facility] and to [facility] - HOSPITAL COURSE Hospital Course: The patient was admitted and treated primarily for ther acute diastolic CHF, NYHA class 2 and ACC/AHA stage C using aggressive IV lasix that was transitioned to PO, she was initially short of breath and wheezy requiring supplemental oxygen, which was weaned down. An Echo showed, EF 65-70%, Grade 2 diastolic dysfunction, moderate increased LA, no valve abnormalities, no RVSP was calculated. She was started on spironolactone with recommendations to continue at home as it is nice complement to lasix has the benefit of being a more gentle diuretic. Another one of her presenting symptoms was dizziness and was found to be bradycardic so her amiodarone was adjusted from 200mg to 100mg PO daily and her metoprolol was initially held and resumed at a lower dose upon discharge. 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 [facility] was also contacted since the patient had an upcoming coronary stent. The patient was medically stable, needed no oxygen and was transported via private car home with daughter and home health services were resumed. - ALLERGIES Allergies/Adverse Reactions: Allergies Allergy/AdvReac Type Severity Reaction Status Date / Time lisinopril Allergy Respiratory Verified 05/30/18 18:23 Penicillins Allergy Rash Verified 05/30/18 08:29 pioglitazone [From Actos] Allergy Itching Verified 05/30/18 18:23 rosiglitazone [From Avandia] Allergy Edema Verified 05/30/18 18:22 - MEDICATIONS Home Medications: Ambulatory Orders Medication Instructions Recorded Confirmed Aspirin 81 mg PO DAILY 05/30/18 05/31/18 Atorvastatin Calcium 40 mg PO QPM 05/30/18 05/31/18 Benzonatate 200 mg PO TID PRN 05/30/18 05/31/18 Clopidogrel [Plavix] 75 mg PO DAILY 05/30/18 05/31/18 Fluticasone/Salmeterol [Advair 1 inh INH BID 05/30/18 05/31/18 100-50 Diskus] Meclizine [Antivert] 25 mg PO BID PRN 05/30/18 05/31/18 Nitroglycerin [Nitrostat] 0.4 mg SL Q5MIN PRN 05/30/18 05/31/18 Scopolamine [Transderm-Scop] 1 patch TOP Q72H 05/30/18 05/31/18 Amiodarone HCl [Pacerone] 100 mg PO DAILY #30 tablet 06/02/18 Fluticasone [Flonase] 1 sprays AYAKA DAILY #1 bottle 06/02/18 Furosemide [Lasix] 20 mg PO BIDWM #60 tablet 06/02/18 Insulin Aspart [NovoLOG] 10 unit SUBQ TIDWM #1 pen 06/02/18 Insulin Degludec [Tresiba] 50 unit SQ DAILY #1 vial 06/02/18 Losartan Potassium 12.5 mg PO DAILY #30 tablet 06/02/18 Metoprolol Succinate [Toprol Xl] 12.5 mg PO BID #30 tab.er.24h 06/02/18 Oxymetazoline HCl [Afrin] 15 ml NS BID #1 mist 06/02/18 Spironolactone [Aldactone] 25 mg PO DAILY #30 tablet 06/02/18 Warfarin [Coumadin] 2 mg PO 1400 #30 tablet 06/02/18 Warfarin [Coumadin] 3 mg PO DAILY #30 tablet 06/02/18 - PHYSICAL EXAM AT DISCHARGE General Appearance: positive: No acute distress, Alert Eyes Bilateral: positive: Normal inspection ENT: positive: Pharynx nml, No signs of dehydration Neck: positive: Thyroid nml, No JVD, Trachea midline, Stiff neck Respiratory: positive: Chest non-tender, No respiratory distress, Other (low base crackles) Cardiovascular: positive: Regular rate & rhythm, No gallop, Systolic murmur Peripheral Pulses: positive: 2+ Abdomen: positive: Non-tender, Nml bowel sounds, Other (rounded, soft) Back: positive: Nml inspection Skin: positive: No rash, Warm, Dry Extremities: positive: Non-tender, Full ROM, Nml appearance, No pedal edema Neurologic/Psychiatric: positive: Oriented x3, CN's nml (2-12), Motor nml, Sensation nml, Mood/affect nml Reflexes: Bicep (R): 3+, Bicep (L): 3+ - LABS Result Diagrams: 06/02/18 05:05 06/02/18 05:05 - DIAGNOSTIC IMAGING Diagnostic Imaging Results: Final report reviewed Diagnostic Imaging Results Comments: EXAM: CHEST RADIOGRAPHY EXAM DATE: 05/30/2018 09:33 AM IMPRESSION: 1. New very mild left basilar atelectasis or infiltrate. 2. New very mild vascular and interstitial prominence. 3. Stable very small left pleural effusion versus pleural thickening. 4. Stable cardiac enlargement. EXAM: CHEST RADIOGRAPHY EXAM DATE: 05/31/2018 06:05 AM. IMPRESSION: 1. Cardiomegaly and pulmonary vascular congestion. 2. Mild left basilar atelectasis or infiltrate and small left pleural effusion. - SEPSIS Current Stage of Sepsis: Ruled out - FOLLOW UP Follow Up: Amiodarone HCl [Pacerone] 100 mg PO DAILY #30 tablet Fluticasone [Flonase] 1 sprays AYAKA DAILY #1 bottle Furosemide [Lasix] 20 mg PO BIDWM #60 tablet Insulin Aspart [NovoLOG] 10 unit SUBQ TIDWM #1 pen Insulin Degludec [Tresiba] 50 unit SQ DAILY #1 vial Losartan Potassium 12.5 mg PO DAILY #30 tablet Metoprolol Succinate [Toprol Xl] 12.5 mg PO BID #30 tab.er.24h Oxymetazoline HCl [Afrin] 15 ml NS BID #1 mist Spironolactone [Aldactone] 25 mg PO DAILY #30 tablet Warfarin [Coumadin] 3 mg PO DAILY #30 tablet Diet: Diabetic Additional Instructions or Follow Up instructions: Fluid overload/CHF: You were admitted for treatment of congestive heart failure, and were given high dose IV lasix. This dose was adjusted to an ending dose of lasix (furosemide) twice daily, and the addition of Spironolactone. If you were previously prescribed Potassium, you need to stop taking Potassium. Hypoxia/low oxygen: You required oxygen at first, and weaned off of this. This was due to the fluid overload. Bradycardia/low heart rates: Your heart rate was very low 45-55, so Amiodarone was cut in 02/22 at 100 mg, and metoprolol was put on hold. The metoprolol was resumed at /, and your heart rates are favorable between 70-80. Atrial fibrillation/anticoagulation: Your INR was sub-therapeutic during your stay and this is likely due to heart failure in which the liver was being well perfused with blood. Today your INR is 2.8, so we recommend that you continue your Coumadin at 2mg daily and re-check the INR on Tuesday. Bloody nose/sinusitis: Since wearing your oxygen, you developed a blood nose, which is very common. Please continue the Afrin nasal spray for the next 2 days, then stop. Please continue the flonase daily to keep your nasal passages clear of mucous (also a cause of dizziness for some people). 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 This matches up with your complaints of dizziness, worse when turning your head to the right or on your right side in bed. I spoke with Dr. Shree Ludwig, [facility] who did not have any neurology perspective follow up recommendations. He also did not recommend any surgical interventions for this condition. He pointed out that there is an increased risk of stroke by having this type and location of stenosis, so stay on Plavix. He also believed that this vertigo (dizziness) is a peripheral vertigo rather than a central vertigo, so an appointment with ENT or an open hearth furnace operator would not be needed. Diabetes: Your hemoglobin A1C was 6.7%, and this value can be as high as 7.5% for a lady of your age. I suggest to make slight adjustments to your previous routine. The tresiba can be adjusted down to 50 units daily, and the Aspart down to 10 units three times per day with meals. Becoming hypoglycemia (low blood sugars) can make you dizzy and/or cause falls. Dr. Tawanda Bolton is getting a discharge summary from me in the next few hours regarding this stay and the medication adjustments. It was great taking care of you! Best of luck with your upcoming cardiac stents. Please see your PCP within a week of this stay and plan on undergoing your upcoming cardiac cath. - TIME SPENT Time Spent in Discharge (Minutes): 65"
[2018-06-02] MEDS: WARFARIN 1 MG TABLET PO SCH ×2 (13:40→13:58)
[2018-06-02] MEDS ORDERED: WARFARIN 1 MG TABLET PO SCH ×2 (14:00)
[2018-06-02] MEDS ORDERED: FUROSEMIDE 20 MG TABLET PO SCH (17:00)
== END 2018-06-02 14:00 | disposition home health service (06) | DRG 291 ==
LOC: ED 08:22 → MS2 11:50 → OBSVTOIN 05-31 10:35
PROVIDERS: ADMIT Nurse Practitioner; ATTEND Nurse Practitioner
DX: I50.9 Heart failure, unspecified (principal); I13.0 Hypertensive heart and chronic kidney disease with heart failure and stage 1 through stage 4 chronic kidney disease, or unspecified chronic kidney disease; I50.33 Acute on chronic diastolic (congestive) heart failure; J45.20 Mild intermittent asthma, uncomplicated; Z79.82 Long term (current) use of aspirin; N18.3 Chronic kidney disease, stage 3 (moderate); Z88.0 Allergy status to penicillin; Z91.14 Patient's other noncompliance with medication regimen; E11.22 Type 2 diabetes mellitus with diabetic chronic kidney disease; J45.909 Unspecified asthma, uncomplicated; R00.1 Bradycardia, unspecified; R06.00 Dyspnea, unspecified; R06.01 Orthopnea; I48.91 Unspecified atrial fibrillation; I66.29 Occlusion and stenosis of unspecified posterior cerebral artery; H81.399 Other peripheral vertigo, unspecified ear; E07.81 Sick-euthyroid syndrome; T46.2X5A Adverse effect of other antidysrhythmic drugs, initial encounter; E66.9 Obesity, unspecified; I25.2 Old myocardial infarction; E78.5 Hyperlipidemia, unspecified; Z79.02 Long term (current) use of antithrombotics/antiplatelets; I25.10 Atherosclerotic heart disease of native coronary artery without angina pectoris; Z95.5 Presence of coronary angioplasty implant and graft; E11.42 Type 2 diabetes mellitus with diabetic polyneuropathy; R30.0 Dysuria; R01.1 Cardiac murmur, unspecified; K21.9 Gastro-esophageal reflux disease without esophagitis; H54.7 Unspecified visual loss; J32.9 Chronic sinusitis, unspecified; M19.90 Unspecified osteoarthritis, unspecified site; F41.9 Anxiety disorder, unspecified; Z79.4 Long term (current) use of insulin; Z68.34 Body mass index [BMI] 34.0-34.9, adult
CPT/HCPCS: 36415; 71045; 80053; 83036; 83605; 83690; 83735; 83880; 84100; 84439; 84443; 84481; 84484; 85025; 85610; 93005; 93306; 94640; 96374; 96376; 99284; A9270; G0378; J1815; J7626

== ENCOUNTER 2018-06-21 08:00 | Outpatient (CLI) | payer MEDICARE, MEDICAID | END 2018-06-21 23:59 | disposition home or self-care (01) | LOC: LAB.N 08:00 | PROVIDERS: ATTEND Nurse Practitioner Gerontology | DX: Z79.01 Long term (current) use of anticoagulants (principal) | CPT/HCPCS: 85610 ==

== ENCOUNTER 2018-06-23 08:00 | Outpatient (CLI) | payer MEDICARE, MEDICAID | END 2018-06-23 23:59 | disposition home or self-care (01) | LOC: LAB.N 08:00 | PROVIDERS: ATTEND Nurse Practitioner Gerontology | DX: Z79.01 Long term (current) use of anticoagulants (principal) | CPT/HCPCS: 85610 ==

== ENCOUNTER 2018-06-26 08:00 | Outpatient (CLI) | payer MEDICARE, MEDICAID | END 2018-06-26 23:59 | disposition home or self-care (01) | LOC: LAB.N 08:00 | PROVIDERS: ATTEND Nurse Practitioner Gerontology | DX: Z51.81 Encounter for therapeutic drug level monitoring (principal); Z79.01 Long term (current) use of anticoagulants | CPT/HCPCS: 85610 ==

== ENCOUNTER 2018-06-28 16:15 | Emergency (ER) | payer MEDICARE, MEDICAID ==
[2018-06-28 16:39] LABS: BASOPHILS # (AUTO) 0.1 10^3/uL (0.0-0.1); BASOPHILS % (AUTO) 1.2 %; EOSINOPHILS # (AUTO) 0.7 10^3/uL (0.0-0.7); EOSINOPHILS % (AUTO) 8.2 %; HGB - HEMOGLOBIN 14.3 g/dL (12.0-16.0); LYMPHOCYTES # (AUTO) 2.2 10^3/uL (1.5-3.5); LYMPHOCYTES % (AUTO) 25.8 %; MEAN CORPUSCULAR HGB CONC 32.8 g/dL (32.0-36.0); MEAN CORPUSCULAR VOLUME 88.4 fL (81.0-99.0); MEAN PLATELET VOLUME 8.3 fL (7.9-10.8); MONOCYTES # (AUTO) 0.8 10^3/uL (0.0-1.0); MONOCYTES % (AUTO) 9.3 %; NEUTROPHILS # (AUTO) 4.7 10^3/uL (1.5-6.6); NEUTROPHILS % (AUTO) 55.5 %; PLT - PLATELET COUNT 238 10^3/uL (130-450); RED BLOOD COUNT 4.93 10^6/uL (4.20-5.40); RED CELL DISTRIBUTION WIDTH 14.9 % (12.0-15.0); WHITE BLOOD COUNT 8.5 x10^3/uL (4.8-10.8)
[2018-06-28 16:48] LABS: INR 1.8 (0.8-1.2); PT - PROTHROMBIN TIME 20.3 secs (9.9-12.6)
[2018-06-28 17:07] LABS: ALBUMIN 3.7 g/dL (3.2-5.5); ALBUMIN/GLOBULIN RATIO 0.9 (1.0-2.2); BILIRUBIN,TOTAL 0.5 mg/dL (0.2-1.0); CREATININE 2.8 mg/dL (0.4-1.0); TOTAL PROTEIN 7.8 g/dL (6.7-8.2)
--- NOTE | 2018-06-28 17:13 | CT Report ---
Reason: fall, head injury Procedure Date: 06/28/2018 Accession Number: [id number] / [id number] Procedure: CT - HEAD WO CPT Code: FULL RESULT: EXAM: CT HEAD EXAM DATE: 06/28/2018 04:51 PM. CLINICAL HISTORY: Fall, head injury. COMPARISON: CTA HEAD / NECK WITHOUT AND WITH CONTRAST 04/01/2018 11:19 AM. TECHNIQUE: Multiaxial CT images were obtained from the foramen magnum to the vertex. Reformats: Sagittal and coronal. IV contrast: None. In accordance with CT protocol optimization, one or more of the following dose reduction techniques were utilized for this exam: automated exposure control, adjustment of mA and/or KV based on patient size, or use of iterative reconstructive technique. FINDINGS: Parenchyma: No acute intraparenchymal hemorrhage. No evidence of mass or midline shift. Jimenez-white differentiation is distinct. Again seen is a focal hypodensity in the right periventricular white matter, which may represent chronic lacunar infarct. Coarse calcifications in the basal ganglia are similar to the prior exam. Extraaxial Spaces: No subdural or epidural collections identified. Ventricles: Normal in size and position. Sinuses and Orbits: Imaged paranasal sinuses, orbits, and mastoids show no significant abnormality. Bones: No evidence of fracture or calvarial defect. Other: There is a posterior left parietal scalp hematoma measuring approximately 3.8 x 1.0 cm. No radiopaque foreign body. IMPRESSION: No acute intracranial findings. An acute infarct may not be visible by CT. Follow-up examinations recommended as clinically indicated. Posterior left parietal scalp hematoma. No underlying skull fracture or radiopaque foreign body. RADIA
[2018-06-28] MEDS ORDERED: SODIUM CHLORIDE 0.9% 1,000 ML IV ONE (17:15)
--- NOTE | 2018-06-28 17:15 | ED Physician Documentation ---
History of Present Illness - Stated complaint Stated Complaint: GLF/ON BLOOD THINNERS - Chief complaint Chief Complaint: Neuro - History obtained from History obtained from: Patient, Family - History of Present Illness Timing: Today Pain level max: 2 Pain level now: 0 - Additonal information Additional information: tripped and fell today. Hit head on dresser. no LOC. No vomiting. No neck or back pain. She is on warfarin. Is being treated for vertigo. No using her walker. Review of Systems Constitutional: denies: Fever, Chills Cardiac: denies: Chest pain / pressure Respiratory: denies: Cough GI: denies: Vomiting, Diarrhea Skin: denies: Rash Musculoskeletal: denies: Neck pain, Back pain Neurologic: denies: Focal weakness, Numbness, Difficulty speaking, Confused, Altered mental status, LOC PD PAST MEDICAL HISTORY - Past Medical History Past Medical History: Yes Cardiovascular: Congestive heart failure, Hypertension, Coronary artery disease, Atrial fibrillation, Murmur Respiratory: Asthma Neuro: Peripheral neuropathy Endocrine/Autoimmune: Type 2 diabetes GI: GERD : Incontinence, Renal insuffiency, Nocturia, Frequency HEENT: Chronic vision loss, Chronic sinusitis Psych: Anxiety Musculoskeletal: Osteoarthritis Derm: None - Past Surgical History Past Surgical History: Yes Cardiovascular: Cardiac catheterization, Angioplasty - Present Medications Home Medications: Ambulatory Orders Medication Instructions Recorded Confirmed Aspirin 81 mg PO DAILY 05/30/18 05/31/18 Atorvastatin Calcium 40 mg PO QPM 05/30/18 05/31/18 Benzonatate 200 mg PO TID PRN 05/30/18 05/31/18 Clopidogrel [Plavix] 75 mg PO DAILY 05/30/18 05/31/18 Fluticasone/Salmeterol [Advair 1 inh INH BID 05/30/18 05/31/18 100-50 Diskus] Meclizine [Antivert] 25 mg PO BID PRN 05/30/18 05/31/18 Nitroglycerin [Nitrostat] 0.4 mg SL Q5MIN PRN 05/30/18 05/31/18 Scopolamine [Transderm-Scop] 1 patch TOP Q72H 05/30/18 05/31/18 Amiodarone HCl [Pacerone] 100 mg PO DAILY #30 tablet 06/02/18 Fluticasone [Flonase] 1 sprays AYAKA DAILY #1 bottle 06/02/18 Furosemide [Lasix] 20 mg PO BIDWM #60 tablet 06/02/18 Insulin Aspart [NovoLOG] 10 unit SUBQ TIDWM #1 pen 06/02/18 Insulin Degludec [Tresiba] 50 unit SQ DAILY #1 vial 06/02/18 Losartan Potassium 12.5 mg PO DAILY #30 tablet 06/02/18 Metoprolol Succinate [Toprol Xl] 12.5 mg PO BID #30 tab.er.24h 06/02/18 Oxymetazoline HCl [Afrin] 15 ml NS BID #1 mist 06/02/18 Spironolactone [Aldactone] 25 mg PO DAILY #30 tablet 06/02/18 Warfarin [Coumadin] 2 mg PO 1400 #30 tablet 06/02/18 Warfarin [Coumadin] 3 mg PO DAILY #30 tablet 06/02/18 - Allergies Allergies/Adverse Reactions: Allergies Allergy/AdvReac Type Severity Reaction Status Date / Time lisinopril Allergy Respiratory Verified 06/28/18 16:23 Penicillins Allergy Rash Verified 06/28/18 16:23 pioglitazone [From Actos] Allergy Itching Verified 06/28/18 16:23 rosiglitazone [From Avandia] Allergy Edema Verified 06/28/18 16:23 - Social History Does the pt smoke?: No Smoking Status: Never smoker Does the pt drink ETOH?: No Does the pt have substance abuse?: No - Immunizations Immunizations are current?: Yes - POLST Patient has POLST: No POLST Status: Full Code PD ED PE NORMAL - Vitals Vital signs reviewed: Yes - General General: Alert and oriented X 3, No acute distress, Well developed/nourished - HEENT HEENT: PERRL, Moist mucous membranes, Other (scalp hematoma, L posterior) - Neck Neck: Supple, no meningeal sign, No bony TTP - Cardiac Cardiac: RRR, Strong equal pulses - Respiratory Respiratory: No respiratory distress, Clear bilaterally - Abdomen Abdomen: Soft, Non tender, Non distended - Back Back: No spinal TTP - Derm Derm: Warm and dry, No rash - Extremities Extremities: No edema - Neuro Neuro: Alert and oriented X 3 - Psych Psych: Normal mood, Normal affect Results - Vitals Vitals: Vital Signs - 24 hr 06/28/18 06/28/18 16:20 17:48 Temperature 36.4 C L Heart Rate 57 L 59 L Respiratory 16 14 Rate Blood Pressure 154/61 H 109/68 O2 Saturation 98 100 Oxygen O2 Source Room air - Labs Labs: Laboratory Tests 06/28/18 06/28/18 06/28/18 16:33 16:33 16:33 WBC 8.5 RBC 4.93 Hgb 14.3 Hct 43.6 MCV 88.4 MCH 29.0 MCHC 32.8 RDW 14.9 Plt Count 238 MPV 8.3 Neut # (Auto) 4.7 Lymph # (Auto) 2.2 [place] # (Auto) 0.8 Eos # (Auto) 0.7 Baso # (Auto) 0.1 Absolute Nucleated RBC 0.00 Nucleated RBC % 0.0 PT 20.3 H INR 1.8 H Sodium 136 Potassium 4.4 Chloride 100 L Carbon Dioxide 22 Anion Gap 14.0 H BUN 82 H* Creatinine 2.8 H Estimated GFR (MDRD) 17 L Glucose 179 H Calcium 9.0 Total Bilirubin 0.5 AST 31 ALT 41 Alkaline Phosphatase 60 Total Protein 7.8 Albumin 3.7 Globulin 4.1 Albumin/Globulin Ratio 0.9 L Lipase 150 H - Rads (name of study) head CT Radiology: Prelim report reviewed, EMP read contemporaneously, See rad report (No acute intracranial findings. An acute infarct may not be visible by CT. Fol low-up examinations recommended as clinically indicated. Posterior left parietal scalp hematoma. No underlying skull fracture or radiopaque foreign body. ) PD MEDICAL DECISION MAKING - ED course Complexity details: reviewed results, re-evaluated patient, considered differential, d/w patient, d/w family ED course: 72-year-old female status post a ground-level fall. No acute findings on head CT. INR is below 2. Normal neurological exam. Wounds were cleansed and bandaged. Hematoma does not have anything that require david or sutures. Tdap given. She also appears a bit over diuresed from her spironolactone and Lasix. Given IV fluids, this should help with her uremia, acute renal insufficiency and lightheadedness. We will have her follow-up with her doctor for recheck of her laboratory test early next week. Patient and family counseled regarding signs and symptoms for which I believe and urgent re- evaluation would be necessary. Patient with good understanding of and agreement to plan and is comfortable going home at this time This document was made in part using voice recognition software. While efforts are made to proofread this document, sound alike and grammatical errors may occur. Departure - Departure Disposition: 01 Home, Self Care Clinical Impression: Acute renal insufficiency, Uremia Head injury Qualifiers: Encounter type: initial encounter Qualified Code(s): S09.90XA - Unspecified injury of head, initial encounter Scalp hematoma Qualifiers: Encounter type: initial encounter Qualified Code(s): S00.03XA - Contusion of scalp, initial encounter Condition: Good Instructions: ED Head Injury Closed, ED Hematoma Follow-Up: Geno Zhao ARNP [Primary Care Provider] - Within 1 week Comments: Return if you worsen. Your kidney function should be rechecked with your doctor early next week. You should also increase your water intake at home.
[2018-06-28 17:50] VITALS: BP 109/68
[2018-06-28] MEDS ORDERED: BACITRACIN OINT TOP STA (18:06)
[2018-06-28] MEDS ORDERED: TETANUS/DIPHTHERIA/PERTUSSIS 0.5 ML SYRINGE IM ONE (18:06)
== END 2018-06-28 19:09 | disposition home or self-care (01) ==
LOC: ED 16:15
DX: S00.03XA Contusion of scalp, initial encounter (principal); S09.90XA Unspecified injury of head, initial encounter; W01.190A Fall on same level from slipping, tripping and stumbling with subsequent striking against furniture, initial encounter; N17.9 Acute kidney failure, unspecified; R42 Dizziness and giddiness; Z79.01 Long term (current) use of anticoagulants; Z79.82 Long term (current) use of aspirin; I48.91 Unspecified atrial fibrillation; I11.0 Hypertensive heart disease with heart failure; I50.9 Heart failure, unspecified; E11.42 Type 2 diabetes mellitus with diabetic polyneuropathy; Z79.4 Long term (current) use of insulin; Z23 Encounter for immunization
CPT/HCPCS: 36415; 70450; 80053; 83690; 85025; 85610; 90471; 90715; 96360; 99283; A9270

== ENCOUNTER 2018-07-03 08:00 | Outpatient (CLI) | payer MEDICARE, MEDICAID ==
[2018-07-03 13:31] LABS: CREATININE 2.4 mg/dL (0.4-1.0)
== END 2018-07-03 23:59 | disposition home or self-care (01) ==
LOC: LAB.N 08:00
PROVIDERS: ATTEND Nurse Practitioner Gerontology
DX: Z79.01 Long term (current) use of anticoagulants (principal)
CPT/HCPCS: 36415; 80048; 85610

== ENCOUNTER 2018-07-10 08:00 | Outpatient (CLI) | payer MEDICARE, MEDICAID ==
[2018-07-10 12:40] LABS: CALCIUM 9.3 mg/dL (8.5-10.3); CREATININE 2.1 mg/dL (0.4-1.0)
== END 2018-07-10 23:59 | disposition home or self-care (01) ==
LOC: LAB.N 08:00
PROVIDERS: ATTEND Nurse Practitioner Gerontology
DX: Z79.01 Long term (current) use of anticoagulants (principal); N18.3 Chronic kidney disease, stage 3 (moderate)
CPT/HCPCS: 36415; 80048; 85610

== ENCOUNTER 2018-07-18 08:00 | Outpatient (CLI) | payer MEDICARE, MEDICAID | END 2018-07-18 23:59 | disposition home or self-care (01) | LOC: LAB.N 08:00 | PROVIDERS: ATTEND Nurse Practitioner Gerontology | DX: Z79.01 Long term (current) use of anticoagulants (principal) | CPT/HCPCS: 85610 ==

== ENCOUNTER 2018-07-24 07:36 | Outpatient (CLI) | payer MEDICARE, MEDICAID | END 2018-07-24 23:59 | disposition home or self-care (01) | LOC: LAB.N 07:36 | PROVIDERS: ATTEND Nurse Practitioner Gerontology | DX: Z79.01 Long term (current) use of anticoagulants (principal) | CPT/HCPCS: 85610 ==

== ENCOUNTER 2018-07-28 08:00 | Outpatient (CLI) | payer MEDICARE, MEDICAID ==
[2018-07-28 14:18] LABS: ALBUMIN 3.9 g/dL (3.2-5.5); BILIRUBIN,TOTAL 0.7 mg/dL (0.2-1.0); CALCIUM 9.1 mg/dL (8.5-10.3)
== END 2018-07-28 23:59 | disposition home or self-care (01) ==
LOC: LAB.N 08:00
PROVIDERS: ATTEND Nurse Practitioner Gerontology
DX: R06.02 Shortness of breath (principal); N18.3 Chronic kidney disease, stage 3 (moderate); R94.6 Abnormal results of thyroid function studies
CPT/HCPCS: 36415; 80053; 83880; 84443

== ENCOUNTER 2018-08-01 08:00 | Outpatient (CLI) | payer MEDICARE, MEDICAID | END 2018-08-01 23:59 | disposition home or self-care (01) | LOC: LAB.N 08:00 | PROVIDERS: ATTEND Nurse Practitioner Gerontology | DX: Z51.81 Encounter for therapeutic drug level monitoring (principal); Z79.01 Long term (current) use of anticoagulants | CPT/HCPCS: 85610 ==

== ENCOUNTER 2018-08-04 08:00 | Outpatient (CLI) | payer MEDICARE, MEDICAID | END 2018-08-04 08:01 | disposition home or self-care (01) | LOC: LAB.N 08:00 | PROVIDERS: ATTEND Nurse Practitioner Gerontology | DX: Z79.01 Long term (current) use of anticoagulants (principal) | CPT/HCPCS: 85610 ==

== ENCOUNTER 2018-08-05 12:28 | Emergency (ER) | payer MEDICARE, MEDICAID ==
[2018-08-05] MEDS ORDERED: PROTHROMBIN COMPLEX CONC 500 UNIT VIAL IVP STA (13:04)
[2018-08-05] MEDS ORDERED: PHYTONADIONE 10 MG/ML AMP SUBQ ONE (13:05)
--- NOTE | 2018-08-05 13:06 | ED Physician Documentation ---
PD HPI HEAD INJURY - Stated complaint Stated Complaint: GLF BUMP ON HEAD - Chief complaint Chief Complaint: Trauma Hd/Nk - History obtained from History obtained from: Patient, Family - History of Present Illness Mechanism of head injury: Fell Where head injury occurred: Home Timing - onset: Today Pain level max: 4 Pain level now: 0 Location of injury: Back Quality of pain: Dull Associated symptoms: No: LOC, AMS, Amnesia, Nausea / vomiting, Neck pain, Paresthesias, Seizures, Ear drainage, Nasal drainage Symptoms improve with: Rest Symptoms worsen with: Palpation. No: Movement, Light, Noise, Other Contributing factors: Anticoagulated (plavix, aspirin, warfarin) Recently seen: Not recently seen Review of Systems Ten Systems: 10 systems reviewed and negative Constitutional: denies: Fever, Chills Ears: denies: Ear pain Nose: denies: Rhinorrhea / runny nose, Congestion Respiratory: denies: Cough GI: denies: Nausea, Vomiting, Diarrhea Skin: denies: Rash Musculoskeletal: denies: Neck pain, Back pain PD PAST MEDICAL HISTORY - Past Medical History Cardiovascular: Congestive heart failure, Hypertension, Coronary artery disease, Atrial fibrillation, Murmur Respiratory: Asthma Neuro: Peripheral neuropathy Endocrine/Autoimmune: Type 2 diabetes GI: GERD : Incontinence, Renal insuffiency, Nocturia, Frequency HEENT: Chronic vision loss, Chronic sinusitis Psych: Anxiety Musculoskeletal: Osteoarthritis Derm: None - Past Surgical History Past Surgical History: Yes Cardiovascular: Cardiac catheterization, Angioplasty - Present Medications Home Medications: Ambulatory Orders Medication Instructions Recorded Confirmed Aspirin 81 mg PO DAILY 05/30/18 05/31/18 Atorvastatin Calcium 40 mg PO QPM 05/30/18 05/31/18 Clopidogrel [Plavix] 75 mg PO DAILY 05/30/18 05/31/18 Fluticasone/Salmeterol [Advair 1 inh INH BID 05/30/18 05/31/18 100-50 Diskus] Meclizine [Antivert] 25 mg PO BID PRN 05/30/18 05/31/18 Nitroglycerin [Nitrostat] 0.4 mg SL Q5MIN PRN 05/30/18 05/31/18 Amiodarone HCl [Pacerone] 100 mg PO DAILY #30 tablet 06/02/18 Fluticasone [Flonase] 1 sprays AYAKA DAILY #1 bottle 06/02/18 Furosemide [Lasix] 20 mg PO BIDWM #60 tablet 06/02/18 Metoprolol Succinate [Toprol Xl] 12.5 mg PO BID #30 tab.er.24h 06/02/18 Warfarin [Coumadin] 2 mg PO 1400 #30 tablet 06/02/18 Warfarin [Coumadin] 3 mg PO DAILY #30 tablet 06/02/18 Insulin Aspart [NovoLOG] 16 unit SUBQ TIDWM 08/05/18 Insulin Degludec [Tresiba] 60 unit SQ DAILY 08/05/18 Levothyroxine [Synthroid] 125 mcg PO QDAC 08/05/18 08/05/18 Losartan Potassium 50 mg PO DAILY 08/05/18 - Allergies Allergies/Adverse Reactions: Allergies Allergy/AdvReac Type Severity Reaction Status Date / Time lisinopril Allergy Respiratory Verified 08/05/18 12:42 Penicillins Allergy Rash Verified 08/05/18 12:42 pioglitazone [From Actos] Allergy Itching Verified 08/05/18 12:42 rosiglitazone [From Avandia] Allergy Edema Verified 08/05/18 12:42 - Social History Does the pt smoke?: No Smoking Status: Never smoker Does the pt drink ETOH?: No Does the pt have substance abuse?: No - Immunizations Immunizations are current?: Yes - POLST Patient has POLST: No POLST Status: Full Code PD ED PE NORMAL - Vitals Vital signs reviewed: Yes - General General: Alert and oriented X 3, No acute distress, Well developed/nourished - HEENT HEENT: PERRL, Ears normal, Moist mucous membranes, Pharynx benign, Other (Small hematoma to the occiput. No palpable skull fractures.) - Neck Neck: Supple, no meningeal sign, No bony TTP - Cardiac Cardiac: RRR, Strong equal pulses - Respiratory Respiratory: No respiratory distress, Clear bilaterally - Abdomen Abdomen: Soft, Non tender, Non distended - Back Back: No spinal TTP - Derm Derm: Warm and dry - Extremities Extremities: No edema, No calf tenderness / cord - Neuro Neuro: Alert and oriented X 3, director of curriculum and instruction 2-12 intact, No motor deficit, No sensory deficit, Normal speech Eye Opening: Spontaneous Motor: Obeys Commands Verbal: Oriented GCS Score: 15 - Psych Psych: Normal mood, Normal affect Results - Vitals Vitals: Vital Signs - 24 hr 08/05/18 08/05/18 08/05/18 12:40 13:30 14:00 Temperature 36.3 C L Heart Rate 61 64 59 L Respiratory 20 18 18 Rate Blood Pressure 102/81 H 136/59 H 144/71 H O2 Saturation 98 99 97 08/05/18 14:40 Temperature Heart Rate 66 Respiratory 19 Rate Blood Pressure 108/48 L O2 Saturation 96 Oxygen O2 Source Room air - Labs Labs: Laboratory Tests 08/05/18 08/05/18 08/05/18 12:56 13:21 13:21 WBC 9.3 RBC 4.38 Hgb 12.8 Hct 38.1 MCV 86.9 MCH 29.2 MCHC 33.6 RDW 14.3 Plt Count 256 MPV 7.4 L Neut # (Auto) 4.4 Lymph # (Auto) 3.3 [place] # (Auto) 1.1 H Eos # (Auto) 0.4 Baso # (Auto) 0.1 Absolute Nucleated RBC 0.01 Nucleated RBC % 0.1 Whole Blood INR 3.1 H Sodium 136 Potassium 3.4 L Chloride 99 L Carbon Dioxide 25 Anion Gap 12.0 BUN 36 H Creatinine 1.9 H Estimated GFR (MDRD) 26 L Glucose 60 L* Calcium 8.9 - Rads (name of study) head CT Radiology: Prelim report reviewed, EMP read contemporaneously, See rad report (There small volume subarachnoid blood in the right sylvian fissure. 2. No definite intraparenchymal hemorrhage. 3. Small focus of cortical and subcortical encephalomalacia at the junction of right superior and middle frontal gyri, as before. ) C-spine CT Radiology: Prelim report reviewed, EMP read contemporaneously, See rad report (No acute fracture) PD MEDICAL DECISION MAKING - ED course Complexity details: reviewed results, re-evaluated patient, considered differential, d/w patient ED course: 72-year-old female presents to the emergency department after ground-level fall today, striking the occiput. C-collar applied in the emergency department. She is on warfarin, Plavix and aspirin. She is found to have a small amount of subarachnoid hemorrhage on CT scan. Given K Centra and vitamin K. Will transfer to a trauma center for further care. [facility] [place] was contacted at 1330. Recontacted [facility] at 1415. Trauma surgery in with pt. At 1450 contacted [facility] and Dr. Iverson graciously accepts in transfer. [employer] forms completed. Pt will be airlifted. This document was made in part using voice recognition software. While efforts are made to proofread this document, sound alike and grammatical errors may occur. - Critical Care Time(min): 45 Time Includes: Direct patient care, Reassess patient, Document care, Coordinate care, Medical consult, See progress note Data interpretation: See progress note Procedures included in critical care time: See progress note Procedures excluded from critical care time: See progress note Departure - Departure Disposition: 02 Transfer Acute Care Hosp Clinical Impression: Intracranial hemorrhage, CAD, multiple vessel, Diabetes mellitus type 2 in obese Traumatic subarachnoid hemorrhage Qualifiers: Encounter type: initial encounter Loss of consciousness presence/duration: without LOC Qualified Code(s): S06.6X0A - Traumatic subarachnoid hemorrhage without loss of consciousness, initial encounter Condition: Stable
--- NOTE | 2018-08-05 13:29 | CT Report ---
Reason: fall, head injury, pt on warfarin Procedure Date: 08/05/2018 Accession Number: [id number] / [id number] Procedure: CT - HEAD WO CPT Code: FULL RESULT: EXAM: CT HEAD EXAM DATE: 08/05/2018 01:00 PM. CLINICAL HISTORY: Fall, head injury, pt on warfarin. COMPARISON: 06/28/2018. TECHNIQUE: Multiaxial CT images were obtained from the foramen magnum to the vertex. Reformats: Sagittal and coronal. IV contrast: None. In accordance with CT protocol optimization, one or more of the following dose reduction techniques were utilized for this exam: automated exposure control, adjustment of mA and/or KV based on patient size, or use of iterative reconstructive technique. FINDINGS: Parenchyma: No midline shift. There is a small area of cortical and subcortical encephalomalacia at the junction of the right superior and middle frontal gyri, unchanged. There is moderate dystrophic calcification in the bilateral globus pallidus, as before. No new low or high density brain parenchymal lesions are identified. No intra-axial mass-effect. Jimenez-white differentiation otherwise is intact. Extraaxial Spaces: There small volume subarachnoid blood in the right sylvian fissure. No subdural fluid collection is identified. Ventricles: Normal in size and position. Sinuses and Orbits: Imaged paranasal sinuses, orbits, and mastoids show no significant abnormality. Bilateral cataract surgery. Bones: No evidence of fracture or calvarial defect. Other: No scalp contusion is identified. IMPRESSION: 1. There small volume subarachnoid blood in the right sylvian fissure. 2. No definite intraparenchymal hemorrhage. 3. Small focus of cortical and subcortical encephalomalacia at the junction of right superior and middle frontal gyri, as before. RADIA The critical result notification system was initiated by Dr. Ignacio Mosley at 01:25 PM on 08/05/2018. The above critical result findings were discussed with Luciano Singletary by Dr. Ignacio Mosley at 01:28 PM on 08/05/2018.
[2018-08-05 13:32] LABS: BASOPHILS # (AUTO) 0.1 10^3/uL (0.0-0.1); EOSINOPHILS # (AUTO) 0.4 10^3/uL (0.0-0.7); EOSINOPHILS % (AUTO) 4.4 %; HGB - HEMOGLOBIN 12.8 g/dL (12.0-16.0); LYMPHOCYTES # (AUTO) 3.3 10^3/uL (1.5-3.5); LYMPHOCYTES % (AUTO) 35.7 %; MEAN CORPUSCULAR HEMOGLOBIN 29.2 pg (27.0-31.0); MEAN CORPUSCULAR HGB CONC 33.6 g/dL (32.0-36.0); MEAN CORPUSCULAR VOLUME 86.9 fL (81.0-99.0); MEAN PLATELET VOLUME 7.4 fL (7.9-10.8); MONOCYTES # (AUTO) 1.1 10^3/uL (0.0-1.0); MONOCYTES % (AUTO) 11.9 %; NEUTROPHILS # (AUTO) 4.4 10^3/uL (1.5-6.6); PLT - PLATELET COUNT 256 10^3/uL (130-450); RED BLOOD COUNT 4.38 10^6/uL (4.20-5.40); RED CELL DISTRIBUTION WIDTH 14.3 % (12.0-15.0); WHITE BLOOD COUNT 9.3 x10^3/uL (4.8-10.8)
--- NOTE | 2018-08-05 13:58 | CT Report ---
Reason: fall, head injury Procedure Date: 08/05/2018 Accession Number: [id number] / [id number] Procedure: CT - CERVICAL SPINE WO CPT Code: FULL RESULT: EXAM: CT CERVICAL SPINE WITHOUT CONTRAST DATE: 08/05/2018 01:06 PM. HISTORY: Fall, head injury. COMPARISONS: None. TECHNIQUE: Thin-section axial images were acquired of the cervical spine without contrast. Post-processing: Coronal and sagittal reformats. Other: None. In accordance with CT protocol optimization, one or more of the following dose reduction techniques were utilized for this exam: automated exposure control, adjustment of mA and/or KV based on patient size, or use of iterative reconstructive technique. FINDINGS: Alignment: Gentle convex to the left curvature of the mid cervical spine. No spondylolisthesis. Bones: No fracture or bone lesion. Interspace Levels/Facets: C1-C2: Mild narrowing between the C1 ring and dens articulation. No significant central canal stenosis. Mild narrowing at the C1-2 lateral mass articulation. C2-C3: Mild disk narrowing. Mild right facet arthropathy. No significant left facet arthropathy. No significant central canal or foraminal stenosis. C3-C4: Mild disk narrowing. Mild left facet arthropathy. No significant central canal or foraminal stenosis. C4-C5: Mild disk narrowing. Mild left facet arthropathy. No significant central canal or foraminal stenosis. C5-C6: Unremarkable. C6-C7: Mild to moderate disk narrowing with small disk osteophyte complex and uncovertebral joint hypertrophy results in mild right and no significant left foraminal stenosis. No significant facet arthropathy. No central canal stenosis. C7-T1: Mild disk narrowing. No significant central canal or foraminal stenosis. Musculature: Normal. No fatty atrophy. Other: The paravertebral and prevertebral soft tissues are unremarkable. The lung apices are clear. There are extensive bilateral cavernous carotid calcifications. IMPRESSION: 1. No acute fracture. No paraspinal hematoma. 2. Mild multilevel degenerative disk and facet arthropathy. See above. 3. No spondylolisthesis. Mild levoscoliosis of the cervical spine noted. RADIA
[2018-08-05] MEDS ORDERED: D5.45NS W/20 MEQ KCL 1,000 ML IV STA (14:03)
[2018-08-05] MEDS ORDERED: DEXTROSE 5%-0.45% NACL 1,000 ML IV STA (14:04)
[2018-08-05 14:05] LABS: CALCIUM 8.9 mg/dL (8.5-10.3); CREATININE 1.9 mg/dL (0.4-1.0)
[2018-08-05 15:34] VITALS: BP 132/69
== END 2018-08-05 15:48 | disposition short-term general hospital (02) ==
LOC: ED 12:28
DX: S06.6X0A Traumatic subarachnoid hemorrhage without loss of consciousness, initial encounter (principal); W18.30XA Fall on same level, unspecified, initial encounter; Y92.009 Unspecified place in unspecified non-institutional (private) residence as the place of occurrence of the external cause; Z79.01 Long term (current) use of anticoagulants; Z79.02 Long term (current) use of antithrombotics/antiplatelets; Z79.82 Long term (current) use of aspirin; I48.91 Unspecified atrial fibrillation; I11.0 Hypertensive heart disease with heart failure; I50.9 Heart failure, unspecified; I25.10 Atherosclerotic heart disease of native coronary artery without angina pectoris; Z98.61 Coronary angioplasty status; E11.42 Type 2 diabetes mellitus with diabetic polyneuropathy; Z79.4 Long term (current) use of insulin
CPT/HCPCS: 36415; 70450; 72125; 80048; 85025; 85610; 96365; 96375; 99284; 99291; C9132

== ENCOUNTER 2018-08-29 08:00 | Outpatient (CLI) | payer MEDICARE, MEDICAID | END 2018-08-29 23:59 | disposition home or self-care (01) | LOC: LAB.WCP 08:00 | PROVIDERS: ATTEND Nurse Practitioner Gerontology | DX: Z79.01 Long term (current) use of anticoagulants (principal) | CPT/HCPCS: 85610 ==

== ENCOUNTER 2018-09-04 07:50 | Outpatient (CLI) | payer MEDICARE, MEDICAID ==
[2018-09-04 11:50] LABS: BILIRUBIN,URINE NEGATIVE (NEGATIVE); GLUCOSE, URINE (UA) NEGATIVE (NEGATIVE); KETONES,URINE (UA) NEGATIVE (NEGATIVE); LEUKOCYTE ESTERASE, URINE NEGATIVE (NEGATIVE); NITRITE,URINE NEGATIVE (NEGATIVE); OCCULT BLOOD,URINE NEGATIVE (NEGATIVE); PROTEIN,URINE NEGATIVE (NEGATIVE); UROBILINOGEN,URINE 0.2 (NORMAL) E.U./dL (NORMAL)
[2018-09-04 11:54] LABS: CLARITY,URINE CLEAR (CLEAR)
[2018-09-04 11:59] LABS: BASOPHILS # (AUTO) 0.1 10^3/uL (0.0-0.1); BASOPHILS % (AUTO) 0.6 %; EOSINOPHILS # (AUTO) 0.3 10^3/uL (0.0-0.7); HGB - HEMOGLOBIN 11.4 g/dL (12.0-16.0); LYMPHOCYTES # (AUTO) 1.4 10^3/uL (1.5-3.5); LYMPHOCYTES % (AUTO) 17.1 %; MEAN CORPUSCULAR HEMOGLOBIN 30.3 pg (27.0-31.0); MEAN CORPUSCULAR HGB CONC 32.3 g/dL (32.0-36.0); MEAN CORPUSCULAR VOLUME 93.9 fL (81.0-99.0); MEAN PLATELET VOLUME 10.3 fL (7.9-10.8); MONOCYTES % (AUTO) 11.9 %; NEUTROPHILS # (AUTO) 5.4 10^3/uL (1.5-6.6); PLT - PLATELET COUNT 220 10^3/uL (130-450); RED BLOOD COUNT 3.76 10^6/uL (4.20-5.40); RED CELL DISTRIBUTION WIDTH 14.8 % (12.0-15.0); WHITE BLOOD COUNT 8.2 x10^3/uL (4.8-10.8)
[2018-09-04 12:08] LABS: CREATININE,URINE 53.9 mg/dL; MICROALBUM/CREATININE RATIO,UR 50.1 ug/mg (<30.0); MICROALBUMIN,URINE 2.7 mg/dL (0-300.0)
[2018-09-04 12:26] LABS: ALBUMIN 3.4 g/dL (3.2-5.5); CALCIUM 8.8 mg/dL (8.5-10.3); CREATININE 1.5 mg/dL (0.4-1.0); MAGNESIUM 2.1 mg/dL (1.7-2.8); PHOSPHORUS 3.8 mg/dL (2.5-4.6); URIC ACID 8.2 mg/dL (2.6-7.2)
[2018-09-04 12:27] LABS: RBC,URINE 0-5 /HPF (0-5); SQUAMOUS EPITHELIAL CELL,UR MOD Squamous (<= Few)
[2018-09-04 12:28] LABS: BACTERIA,URINE Rare /HPF (None Seen)
== END 2018-09-04 07:51 | disposition home or self-care (01) ==
LOC: LAB.WCP 07:50
PROVIDERS: ATTEND Nurse Practitioner Gerontology
DX: Z79.01 Long term (current) use of anticoagulants (principal); N18.3 Chronic kidney disease, stage 3 (moderate)
CPT/HCPCS: 36415; 80069; 81001; 82043; 82306; 82570; 83735; 83970; 84550; 85025; 85610

== ENCOUNTER 2018-09-05 12:01 | Outpatient (CLI) | payer MEDICARE, MEDICAID | END 2018-09-05 12:02 | disposition critical access hospital (66) | LOC: EMS 12:01 | PROVIDERS: ATTEND Surgery | DX: R06.02 Shortness of breath (principal) | CPT/HCPCS: A0425; A0429 ==

== ENCOUNTER 2018-09-05 12:27 | Emergency (ER) | payer MEDICARE, MEDICAID ==
--- NOTE | 2018-09-05 14:11 | ED Physician Documentation ---
PD HPI DYSPNEA - Stated complaint Stated Complaint: SOA - Chief complaint Chief Complaint: Resp - History obtained from History obtained from: Patient, Family (daughter) - History of Present Illness Timing - onset: How many weeks ago (1) Timing - details: Gradual onset, Still present Associated symptoms: Cough Similar symptoms before: Diagnosis (h/o CHF) Recently seen: Clinic (had blood work yesterday at clinic) - Additional information Additional information: The patient is a 73-year-old female with history of CHF, insulin dependent diabetes, asthma, atrial fibrillation, and coronary stent placement, who presents stating, "I can't breathe." She has had cough for the past week with scant sputum production. She denies fever or chest pain. Her daughter states that occasionally she hears audible wheezing. The patient has a history of similar symptoms in the past with congestive heart failure. She has been on furosemide, 20 mg twice daily, and has had decreased pedal edema with the diuretic therapy. Review of Systems Constitutional: denies: Fever Ears: denies: Tinnitus/ringing Nose: denies: Congestion Throat: denies: Sore throat Cardiac: denies: Chest pain / pressure Respiratory: reports: Dyspnea, Cough GI: denies: Abdominal Pain, Nausea, Vomiting : denies: Dysuria Skin: denies: Rash Musculoskeletal: denies: Back pain, Extremity pain Neurologic: denies: Focal weakness, Numbness, Headache PD PAST MEDICAL HISTORY - Past Medical History Past Medical History: Yes Cardiovascular: Congestive heart failure, Hypertension, Coronary artery disease, Atrial fibrillation, Murmur Respiratory: Asthma Neuro: Peripheral neuropathy Endocrine/Autoimmune: Type 2 diabetes GI: GERD GAS CHARGER: None : Incontinence, Renal insuffiency, Nocturia, Frequency HEENT: Chronic vision loss, Chronic sinusitis Psych: Anxiety Musculoskeletal: Osteoarthritis Derm: None - Past Surgical History Past Surgical History: Yes Cardiovascular: Coronary stent, Cardiac catheterization, Angioplasty - Present Medications Home Medications: Ambulatory Orders Medication Instructions Recorded Confirmed Aspirin 81 mg PO DAILY 05/30/18 05/31/18 Atorvastatin Calcium 40 mg PO QPM 05/30/18 05/31/18 Clopidogrel [Plavix] 75 mg PO DAILY 05/30/18 05/31/18 Fluticasone/Salmeterol [Advair 1 inh INH BID 05/30/18 05/31/18 100-50 Diskus] Meclizine [Antivert] 25 mg PO BID PRN 05/30/18 05/31/18 Nitroglycerin [Nitrostat] 0.4 mg SL Q5MIN PRN 05/30/18 05/31/18 Amiodarone HCl [Pacerone] 100 mg PO DAILY #30 tablet 06/02/18 Fluticasone [Flonase] 1 sprays AYAKA DAILY #1 bottle 06/02/18 Furosemide [Lasix] 20 mg PO BIDWM #60 tablet 06/02/18 Metoprolol Succinate [Toprol Xl] 12.5 mg PO BID #30 tab.er.24h 06/02/18 Warfarin [Coumadin] 2 mg PO 1400 #30 tablet 06/02/18 Warfarin [Coumadin] 3 mg PO DAILY #30 tablet 06/02/18 Insulin Aspart [NovoLOG] 16 unit SUBQ TIDWM 08/05/18 Insulin Degludec [Tresiba] 60 unit SQ DAILY 08/05/18 Levothyroxine [Synthroid] 125 mcg PO QDAC 08/05/18 08/05/18 Losartan Potassium 50 mg PO DAILY 08/05/18 - Allergies Allergies/Adverse Reactions: Allergies Allergy/AdvReac Type Severity Reaction Status Date / Time lisinopril Allergy Respiratory Verified 09/05/18 12:38 Penicillins Allergy Rash Verified 09/05/18 12:38 pioglitazone [From Actos] Allergy Itching Verified 09/05/18 12:38 rosiglitazone [From Avandia] Allergy Edema Verified 09/05/18 12:38 - Social History Does the pt smoke?: No Smoking Status: Never smoker Does the pt drink ETOH?: No Does the pt have substance abuse?: No - Immunizations Immunizations are current?: Yes - POLST Patient has POLST: No POLST Status: Full Code PD ED PE NORMAL - Vitals Vital signs reviewed: Yes (Borderline systolic hypertension) - General General: Alert and oriented X 3, Well developed/nourished, Other (Overweight, in no obvious respiratory distress while sitting upright.) - HEENT HEENT: Atraumatic, Pharynx benign - Neck Neck: No adenopathy, No JVD - Cardiac Cardiac: RRR - Respiratory Respiratory: No respiratory distress, Clear bilaterally - Abdomen Abdomen: Soft, Non tender, Other (Rotund abdomen.) - Back Back: No CVA TTP - Derm Derm: No rash - Extremities Extremities: No calf tenderness / cord, Other (Trace pedal edema bilaterally.) - Neuro Neuro: Alert and oriented X 3, No motor deficit, Normal speech Results - Vitals Vitals: Vital Signs - 24 hr 09/05/18 09/05/18 09/05/18 12:33 15:17 17:03 Temperature 36.5 C 36.5 C 36.5 C Heart Rate 70 68 83 Respiratory 18 18 18 Rate Blood Pressure 144/56 H 131/54 H 142/52 H O2 Saturation 100 96 96 Oxygen O2 Source Room air - EKG (time done) 15:21 Rate: Rate (enter#) (68) Rhythm: NSR [place]: Normal Intervals: Normal [place] QRS: Normal Ischemia: Non specific changes Compare to prior EKG: Unchanged from prior EKG Computer interpretation: Agree with computer - Labs Labs: Laboratory Tests 09/05/18 09/05/18 14:05 14:05 Troponin I < 0.04 B-Natriuretic Peptide 331 H - Rads (name of study) CXR Radiology: Prelim report reviewed, EMP read contemporaneously, See rad report (Cardiovascular fullness with small effusions, most likely congestive failure.) PD MEDICAL DECISION MAKING - ED course Complexity details: reviewed old records, reviewed results, re-evaluated patient, considered differential, d/w patient, d/w family ED course: The patient's presentation is most consistent with congestive heart failure, with vascular congestion on chest x-ray with small pleural effusions, and a BNP of 331. There is no evidence to suggest acute myocardial ischemia and troponin is normal. Chest x-ray does not reveal evidence of pneumonia, and the patient's exam does not suggest asthma exacerbation. She had CBC and chemistry panel performed yesterday, and I do not think it is clinically necessary to repeat the lab studies today. Treatment in the emergency department included administration of Lasix 40 mg IV. The patient has subsequently diuresed well, and on reexamination she feels subjectively improved. I discussed with her and her daughter the diagnosis, outpatient follow-up, as well as potentially worrisome signs or symptoms that should prompt reevaluation in the emergency department. Departure - Departure Disposition: 01 Home, Self Care Clinical Impression: CHF (congestive heart failure) Qualifiers: Heart failure type: unspecified Heart failure chronicity: acute on chronic Qualified Code(s): I50.9 - Heart failure, unspecified Condition: Stable Instructions: ED CHF General Follow-Up: Geno Zhao ARNP [Primary Care Provider] - Comments: Avoid salty foods, and do not add salt your food. Continue taking furosemide as previously prescribed. 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 Return to the emergency department if you develop increasing difficulty breathing, or otherwise worsening symptoms. Discharge Date/Time: 09/05/18 17:22
[2018-09-05] MEDS ORDERED: FUROSEMIDE 40 MG/4 ML VIAL IVP STA (14:49)
--- NOTE | 2018-09-05 14:51 | XRAY Report ---
Reason: dyspnea Procedure Date: 09/05/2018 Accession Number: [id number] / [id number] Procedure: XR - Chest 2 View X-Ray CPT Code: 00508 FULL RESULT: EXAM: CHEST RADIOGRAPHY EXAM DATE: 09/05/2018 02:28 PM. CLINICAL HISTORY: Dyspnea. COMPARISON: CHEST 1 VIEW 05/31/2018 5:50 AM. TECHNIQUE: 2 views. FINDINGS: Lungs/Pleura: Hyperexpanded with flat diaphragm compatible with underlying COPD or asthma. Mild diffuse hazy prominence of lung markings with some septal lines. Small pleural effusions. No consolidation or pneumothorax. Mediastinum: Mild cardiomegaly similar to previous study. Upper lobe vascular fullness. Other: Osteopenia, scoliosis, degenerative changes. IMPRESSION: Cardiovascular fullness with small effusions, most likely congestive failure. RADIA
[2018-09-05 17:04] VITALS: BP 142/52
== END 2018-09-05 17:22 | disposition home or self-care (01) ==
LOC: EDUNIT# → ED 12:27
DX: I11.0 Hypertensive heart disease with heart failure (principal); I50.9 Heart failure, unspecified; J90 Pleural effusion, not elsewhere classified; J45.909 Unspecified asthma, uncomplicated; I48.91 Unspecified atrial fibrillation; Z79.01 Long term (current) use of anticoagulants; Z79.82 Long term (current) use of aspirin; I25.10 Atherosclerotic heart disease of native coronary artery without angina pectoris; Z95.5 Presence of coronary angioplasty implant and graft; E11.42 Type 2 diabetes mellitus with diabetic polyneuropathy; Z79.4 Long term (current) use of insulin
CPT/HCPCS: 36415; 71046; 83880; 84484; 93005; 96374; 99284

== ENCOUNTER 2018-09-09 19:06 | Emergency (ER) | payer MEDICARE, MEDICAID ==
--- NOTE | 2018-09-09 19:31 | ED Physician Documentation ---
History of Present Illness - Stated complaint Stated Complaint: SOA - Chief complaint Chief Complaint: Resp - History obtained from History obtained from: Patient, Family - Additonal information Additional information: Patient is a 73-year-old female with history of CHF, diabetes, coronary artery disease, coronary stenting, atrial fibrillation presenting with worsening shortness of breath over the past several days. Patient was seen on 09/05/2018 with similar symptoms and determined to have a mild CHF exacerbation which was significantly improved with additional dose of Lasix in the ED. Patient is reportedly compliant with Lasix 20 mg twice daily at home with no recent medication changes. Patient has cardiology follow-up scheduled for Tuesday. Patient denies productive cough, fever, chest pain, abdominal pain, urinary changes, stool changes, nausea, or vomiting. Patient does not normally require oxygen at home. Patient otherwise reports being generally weak when she feels shortness of breath. Patient and family report weight loss of several pounds as opposed to weight gain. No other areas of edema noted. Patient does report that she took insulin just prior to arrival and advised her that she can eat and otherwise we will continue to check glucose readings.No other improving or worsening factors noted. 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 : Incontinence, Renal insuffiency, Nocturia, Frequency HEENT: Chronic vision loss, Chronic sinusitis Psych: Anxiety Musculoskeletal: Osteoarthritis Derm: None - Past Surgical History Past Surgical History: Yes Cardiovascular: Coronary stent, Cardiac catheterization, Angioplasty - Present Medications Home Medications: Ambulatory Orders Medication Instructions Recorded Confirmed Aspirin 81 mg PO DAILY 05/30/18 05/31/18 Atorvastatin Calcium 40 mg PO QPM 05/30/18 05/31/18 Clopidogrel [Plavix] 75 mg PO DAILY 05/30/18 05/31/18 Fluticasone/Salmeterol [Advair 1 inh INH BID 05/30/18 05/31/18 100-50 Diskus] Meclizine [Antivert] 25 mg PO BID PRN 05/30/18 05/31/18 Nitroglycerin [Nitrostat] 0.4 mg SL Q5MIN PRN 05/30/18 05/31/18 Amiodarone HCl [Pacerone] 100 mg PO DAILY #30 tablet 06/02/18 Fluticasone [Flonase] 1 sprays AYAKA DAILY #1 bottle 06/02/18 Furosemide [Lasix] 20 mg PO BIDWM #60 tablet 06/02/18 Metoprolol Succinate [Toprol Xl] 12.5 mg PO BID #30 tab.er.24h 06/02/18 Warfarin [Coumadin] 2 mg PO 1400 #30 tablet 06/02/18 Warfarin [Coumadin] 3 mg PO DAILY #30 tablet 06/02/18 Insulin Aspart [NovoLOG] 16 unit SUBQ TIDWM 08/05/18 Insulin Degludec [Tresiba] 60 unit SQ DAILY 08/05/18 Levothyroxine [Synthroid] 125 mcg PO QDAC 08/05/18 08/05/18 Losartan Potassium 50 mg PO DAILY 08/05/18 Azithromycin [Zithromax] 250 mg PO DAILY #4 tablet 09/09/18 - Allergies Allergies/Adverse Reactions: Allergies Allergy/AdvReac Type Severity Reaction Status Date / Time lisinopril Allergy Respiratory Verified 09/09/18 19:14 Penicillins Allergy Rash Verified 09/09/18 19:14 pioglitazone [From Actos] Allergy Itching Verified 09/09/18 19:14 rosiglitazone [From Avandia] Allergy Edema Verified 09/09/18 19:14 - Social History Does the pt smoke?: No Smoking Status: Never smoker Does the pt drink ETOH?: No Does the pt have substance abuse?: No - Immunizations Immunizations are current?: Yes - POLST Patient has POLST: No POLST Status: Full Code PD ED PE NORMAL - Vitals Vital signs reviewed: Yes - General General: Alert and oriented X 3, No acute distress, Well developed/nourished - HEENT HEENT: Atraumatic, Moist mucous membranes - Neck Neck: Supple, no meningeal sign - Cardiac Cardiac: RRR, No murmur - Respiratory Respiratory: No: No respiratory distress (Mild labored breathing), Clear bilaterally (Breath sounds present bilaterally but with poor air movement throughout occasional crackle and wheeze) - Abdomen Abdomen: Normal bowel sounds, Soft, Non tender, Non distended - Derm Derm: Normal color, Warm and dry, No rash - Extremities Extremities: No deformity, No tenderness to palpate, No edema - Neuro Neuro: Alert and oriented X 3, No motor deficit, No sensory deficit - Psych Psych: Normal mood, Normal affect Results - Vitals Vitals: Vital Signs - 24 hr 09/09/18 09/09/18 09/09/18 19:11 19:33 21:00 Temperature 37.0 C Heart Rate 70 117 H Respiratory 25 H 25 H Rate Blood Pressure 143/55 H 139/68 H O2 Saturation 95 90 L 97 09/09/18 22:25 Temperature Heart Rate 67 Respiratory 24 Rate Blood Pressure 120/54 L O2 Saturation 95 Oxygen O2 Source Room air Oxygen Flow Rate 2 - EKG (time done) 1918 Rate: Rate (enter#) (70) Rhythm: NSR Intervals: Prolonged QT Ischemia: T wave inversion - Labs Labs: Laboratory Tests 09/09/18 09/09/18 09/09/18 19:32 19:32 19:32 WBC 11.9 H RBC 3.80 L Hgb 11.2 L Hct 34.3 L MCV 90.3 MCH 29.5 MCHC 32.7 RDW 14.1 Plt Count 413 MPV 9.3 Neut # (Auto) Not Reportable Lymph # (Auto) Not Reportable [place] # (Auto) Not Reportable Eos # (Auto) Not Reportable Baso # (Auto) Not Reportable Absolute Nucleated RBC Not Reportable Total Counted 100 Band Neuts % (Manual) 0 Abnorm Lymph % (Manual) 0 Nucleated RBC % Not Reportable Neutrophils # (Manual) 8.4 H Lymphocytes # (Manual) 1.4 L Monocytes # (Manual) 1.5 H Eosinophils # (Manual) 0.4 Basophils # (Manual) 0.1 Differential Comment MANUAL DIFFERENTIAL Manual Slide Review Indicated Platelet Estimate NORMAL (130-450,000) Platelet Morphology NORMAL APPEARANCE RBC Morph Micro Appear NORMAL APPEARANCE VBG pH VBG pCO2 VBG pO2 VBG HCO3 VBG Total CO2 VBG O2 Saturation VBG Base Excess Sodium 139 Potassium 4.0 Chloride 100 L Carbon Dioxide 22 Anion Gap 17.0 H BUN 25 H Creatinine 1.7 H Estimated GFR (MDRD) 29 L Glucose 84 POC Whole Bld Glucose Calcium 8.9 Total Bilirubin 1.3 H AST 32 ALT 32 Alkaline Phosphatase 70 Troponin I 0.04 B-Natriuretic Peptide Total Protein 7.9 Albumin 3.2 Globulin 4.7 H Albumin/Globulin Ratio 0.7 L Lipase 50 Urine Color Urine Clarity Urine pH Ur Specific [place] Urine Protein Urine Glucose (UA) Urine Ketones Urine Occult Blood Urine Nitrite Urine Bilirubin Urine Urobilinogen Ur Leukocyte Esterase Ur Microscopic Review Urine Culture Comments 09/09/18 09/09/18 09/09/18 19:32 19:50 21:03 WBC RBC Hgb Hct MCV MCH MCHC RDW Plt Count MPV Neut # (Auto) Lymph # (Auto) [place] # (Auto) Eos # (Auto) Baso # (Auto) Absolute Nucleated RBC Total Counted Band Neuts % (Manual) Abnorm Lymph % (Manual) Nucleated RBC % Neutrophils # (Manual) Lymphocytes # (Manual) Monocytes # (Manual) Eosinophils # (Manual) Basophils # (Manual) Differential Comment Manual Slide Review Platelet Estimate Platelet Morphology RBC Morph Micro Appear VBG pH 7.500 H VBG pCO2 34.4 L VBG pO2 36.2 VBG HCO3 26.2 VBG Total CO2 27.3 VBG O2 Saturation 71.6 VBG Base Excess 3.3 H Sodium Potassium Chloride Carbon Dioxide Anion Gap BUN Creatinine Estimated GFR (MDRD) Glucose POC Whole Bld Glucose 33 L* Calcium Total Bilirubin AST ALT Alkaline Phosphatase Troponin I B-Natriuretic Peptide 381 H Total Protein Albumin Globulin Albumin/Globulin Ratio Lipase Urine Color Urine Clarity Urine pH Ur Specific [place] Urine Protein Urine Glucose (UA) Urine Ketones Urine Occult Blood Urine Nitrite Urine Bilirubin Urine Urobilinogen Ur Leukocyte Esterase Ur Microscopic Review Urine Culture Comments 09/09/18 09/09/18 21:28 21:51 WBC RBC Hgb Hct MCV MCH MCHC RDW Plt Count MPV Neut # (Auto) Lymph # (Auto) [place] # (Auto) Eos # (Auto) Baso # (Auto) Absolute Nucleated RBC Total Counted Band Neuts % (Manual) Abnorm Lymph % (Manual) Nucleated RBC % Neutrophils # (Manual) Lymphocytes # (Manual) Monocytes # (Manual) Eosinophils # (Manual) Basophils # (Manual) Differential Comment Manual Slide Review Platelet Estimate Platelet Morphology RBC Morph Micro Appear VBG pH VBG pCO2 VBG pO2 VBG HCO3 VBG Total CO2 VBG O2 Saturation VBG Base Excess Sodium Potassium Chloride Carbon Dioxide Anion Gap BUN Creatinine Estimated GFR (MDRD) Glucose POC Whole Bld Glucose 103 H Calcium Total Bilirubin AST ALT Alkaline Phosphatase Troponin I B-Natriuretic Peptide Total Protein Albumin Globulin Albumin/Globulin Ratio Lipase Urine Color YELLOW Urine Clarity CLEAR Urine pH 5.5 Ur Specific [place] <=1.005 Urine Protein NEGATIVE Urine Glucose (UA) NEGATIVE Urine Ketones NEGATIVE Urine Occult Blood NEGATIVE Urine Nitrite NEGATIVE Urine Bilirubin NEGATIVE Urine Urobilinogen 0.2 (NORMAL) Ur Leukocyte Esterase NEGATIVE Ur Microscopic Review NOT INDICATED Urine Culture Comments NOT INDICATED PD MEDICAL DECISION MAKING - ED course Complexity details: reviewed old records, reviewed results, re-evaluated patient, considered differential, d/w patient, d/w family ED course: Patient presenting with likely CHF exacerbation. Patient was seen here several days ago for similar symptoms and responded well to IV dose of Lasix. Patient has persistent shortness of breath and cough although denies significant edema or weight gain, but rather had weight loss. Patient is compliant with Lasix and her other medications. Patient required submental oxygen initially during her ED stay, but was able to be weaned off. EKG did not find evidence of ischemia, but patient later noted to be in A. fib with heart rate in the 120s. Patient does have history of A. fib and missed her nightly dose of metoprolol, which we unfortunately do not have in tablet form in the ED. Patient received small dose of Lopressor IV which resulted in rate control. Patient advised to not take her metoprolol tonight given this IV dose. Patient also received IV dose of Lasix which improved respiratory symptoms. Screening lab work found mild leukocytosis, creatinine at 1.7, troponin negative, BNP slightly elevated but similar to recent measurement. Urinalysis unremarkable. Chest x-ray concerning for pulmonary edema and possible pneumonia. As did not want to give patient more fluid, gave antibiotic regimen by IM and p.o. Patient had taken insulin just prior to arrival and upon repeat measurement of glucose, noted to be in the 30s although patient was only mildly symptomatic. Patient was able to tolerate oral intake well and did not require D50. Repeat glucose within normal limits. At this time, do not feel that patient is in florid CHF or requiring hospitalization. Feel that she can continue her Lasix at home in addition to oral antibiotics. Patient's daughter reports that she has cardiology appointment scheduled 1 day from now on Tuesday in [place]. Feel that she can continue her regimen at home and emphasized need to follow-up as scheduled on Tuesday, as well as gave family strict return precautions. Patient also advised of possible reactions between antibiotics and her medications including warfarin and that she will likely need INR in the near future. Daughter voiced understanding and is comfortable with this discharge plan. Departure - Departure Disposition: 01 Home, Self Care Clinical Impression: Congestive heart failure Qualifiers: Heart failure type: unspecified Heart failure chronicity: chronic Qualified Code(s): I50.9 - Heart failure, unspecified Pneumonia Qualifiers: Pneumonia type: due to unspecified organism Laterality: unspecified laterality Lung location: unspecified part of lung Qualified Code(s): J18.9 - Pneumonia, unspecified organism Condition: Good Instructions: ED CHF General, ED Pneumonia Adult Follow-Up: Geno Zhao ARNP [Primary Care Provider] - Within 3 Days Prescriptions: Azithromycin [Zithromax] 250 mg PO DAILY #4 tablet Comments: Please continue all home medications as previously instructed. Please start new antibiotic tomorrow as you have received today's dose of antibiotics in the ED. Please take antibiotics with a small amount of food to avoid upset stomach. Please be aware that antibiotics can react with other medications including your warfarin and recommend INR check in the next several days. Please follow-up with cardiology as scheduled on Tuesday and contact primary care physician for follow-up in the next 2 to 3 days as well. Return to ED sooner if experience worsening symptoms or have other concerns.
[2018-09-09 19:44] LABS: BASOPHILS % (AUTO) 0.6 %; EOSINOPHILS % (AUTO) 1.7 %; HGB - HEMOGLOBIN 11.2 g/dL (12.0-16.0); LYMPHOCYTES % (AUTO) 13.8 %; MEAN CORPUSCULAR HEMOGLOBIN 29.5 pg (27.0-31.0); MEAN CORPUSCULAR HGB CONC 32.7 g/dL (32.0-36.0); MEAN CORPUSCULAR VOLUME 90.3 fL (81.0-99.0); MEAN PLATELET VOLUME 9.3 fL (7.9-10.8); MONOCYTES % (AUTO) 13.5 %; NEUTROPHILS % (AUTO) 69.8 %; PLT - PLATELET COUNT 413 10^3/uL (130-450); RED CELL DISTRIBUTION WIDTH 14.1 % (12.0-15.0); WHITE BLOOD COUNT 11.9 x10^3/uL (4.8-10.8)
[2018-09-09 19:55] LABS: ABNORMAL LYMPHS % (MANUAL) 0 %; BAND NEUTROPHILS % (MANUAL) 0 %
[2018-09-09 19:57] LABS: VBG BASE EXCESS 3.3 mmol/L (-2 - +2); VBG PCO2 34.4 mmHg (41-51); VBG PH 7.5 (7.31-7.41); VBG PO2 36.2 mmHg (25-47); VBG TOTAL CO2 27.3 mmol/L (24-29)
[2018-09-09 20:02] LABS: ALBUMIN 3.2 g/dL (3.2-5.5); ALBUMIN/GLOBULIN RATIO 0.7 (1.0-2.2); BILIRUBIN,TOTAL 1.3 mg/dL (0.2-1.0); CALCIUM 8.9 mg/dL (8.5-10.3); CREATININE 1.7 mg/dL (0.4-1.0); TOTAL PROTEIN 7.9 g/dL (6.7-8.2)
[2018-09-09] MEDS ORDERED: FUROSEMIDE 40 MG/4 ML VIAL IVP STA (20:13)
[2018-09-09 20:16] LABS: BASOPHILS # (MANUAL) 0.1 10^3/uL (0-0.1); BASOPHILS % (MANUAL) 1 %; EOSINOPHILS # (MANUAL) 0.4 10^3/uL (0-0.7); LYMPHOCYTES # (MANUAL) 1.4 10^3/uL (1.5-3.5); LYMPHOCYTES % (MANUAL) 12 %; MONOCYTES # (MANUAL) 1.5 10^3/uL (0.0-1.0)
[2018-09-09 20:17] LABS: PLATELET MORPHOLOGY NORMAL APPEARANCE (NORMAL); RBC MORPHOLOGY (MULTIPLE) NORMAL APPEARANCE (NORMAL)
[2018-09-09 20:18] LABS: DIFFERENTIAL COMMENT MANUAL DIFFERENTIAL; PLATELET ESTIMATE, MANUAL NORMAL (130-450,000) (NORMAL)
--- NOTE | 2018-09-09 20:21 | XRAY Report ---
Reason: chest pain Procedure Date: 09/09/2018 Accession Number: [id number] / [id number] Procedure: XR - Chest 1 View X-Ray CPT Code: 13719 FULL RESULT: EXAM: CHEST RADIOGRAPHY EXAM DATE: 09/09/2018 07:54 PM. CLINICAL HISTORY: Chest pain. COMPARISON: CHEST 2 VIEW 09/05/2018 2:09 PM. TECHNIQUE: 1 view. FINDINGS: Lungs/Pleura: Redemonstration of density in the left lower lung. With tiny left effusion. Low lung volumes since the prior. Accentuated pulmonary vascularity with hazy opacification and perihilar densities. Mediastinum: Enlarged cardiac silhouette Other: None. IMPRESSION: Stable increased density in the left lower lung, may reflect atelectasis or pneumonia. Worsened pulmonary edema. RADIA
[2018-09-09] MEDS ORDERED: LIDOCAINE 1% 2 ML VIAL MC ONE (20:48)
[2018-09-09] MEDS ORDERED: cefTRIAXone 1 GM VIAL IM STA (20:48)
[2018-09-09] MEDS ORDERED: AZITHROMYCIN 250 MG TABLET PO STA (20:49)
[2018-09-09] MEDS ORDERED: METOPROLOL SUCCINATE 25 MG TABLET PO SCH (21:00)
[2018-09-09] MEDS ORDERED: METOPROLOL TARTRATE 50 MG TABLET ONE (21:11)
[2018-09-09] MEDS ORDERED: METOPROLOL 5 MG/5 ML VIAL IVP STA (21:12)
[2018-09-09 21:36] LABS: BILIRUBIN,URINE NEGATIVE (NEGATIVE); GLUCOSE, URINE (UA) NEGATIVE (NEGATIVE); KETONES,URINE (UA) NEGATIVE (NEGATIVE); LEUKOCYTE ESTERASE, URINE NEGATIVE (NEGATIVE); NITRITE,URINE NEGATIVE (NEGATIVE); OCCULT BLOOD,URINE NEGATIVE (NEGATIVE); PH,URINE 5.5 PH (5.0-7.5); PROTEIN,URINE NEGATIVE (NEGATIVE); UROBILINOGEN,URINE 0.2 (NORMAL) E.U./dL (NORMAL)
[2018-09-09 21:38] LABS: CLARITY,URINE CLEAR (CLEAR)
[2018-09-09 22:26] VITALS: BP 120/54
== END 2018-09-09 22:38 | disposition home or self-care (01) ==
LOC: ED 19:06
DX: J18.9 Pneumonia, unspecified organism (principal); I50.9 Heart failure, unspecified; I48.91 Unspecified atrial fibrillation; I11.0 Hypertensive heart disease with heart failure; E11.42 Type 2 diabetes mellitus with diabetic polyneuropathy; Z79.4 Long term (current) use of insulin
CPT/HCPCS: 36415; 71045; 80053; 81003; 82803; 83690; 83880; 84484; 85025; 93005; 96372; 96374; 96375; 99283; 99284; A9270; 81001; 87086

== ENCOUNTER 2018-09-11 08:00 | Outpatient (CLI) | payer MEDICARE, MEDICAID | END 2018-09-11 23:59 | disposition home or self-care (01) | LOC: LAB.N 08:00 | PROVIDERS: ATTEND Nurse Practitioner Gerontology | DX: Z79.01 Long term (current) use of anticoagulants (principal) | CPT/HCPCS: 85610 ==